=== PATIENT | female | born 1975 | race African-American/Black ===

== ENCOUNTER 2020-07-29 09:42 | Outpatient (REF) | payer MEDICARE, MEDICAID, SELFPAY | END 2020-07-29 09:43 | disposition home or self-care (01) | LOC: HO.LAB 09:42 | PROVIDERS: Visit Provider Internal Medicine | DX: Z20.828 Contact with and (suspected) exposure to other viral communicable diseases (principal) | CPT/HCPCS: 87635 ==

== ENCOUNTER → 2020-08-30 12:35 | Outpatient (BNVA) | payer MEDICARE, MEDICAID, SELFPAY | PROVIDERS: PCP Internal Medicine; Referring Provider Internal Medicine; Visit Provider Advanced Practice Midwife | DX: Z76.89 Persons encountering health services in other specified circumstances (principal) ==

== ENCOUNTER → 2020-08-31 13:33 | Outpatient (BNVA) | payer MEDICARE, MEDICAID, SELFPAY | PROVIDERS: Visit Provider Advanced Practice Midwife | DX: Z30.42 Encounter for surveillance of injectable contraceptive (principal) | CPT/HCPCS: 99211; J1050 ==

== ENCOUNTER → 2020-10-04 09:51 | Outpatient (BNV) | payer MEDICARE, MEDICAID, SELFPAY | PROVIDERS: PCP Internal Medicine; Visit Provider Internal Medicine | DX: E53.8 Deficiency of other specified B group vitamins (principal) | CPT/HCPCS: 99212; 99213; G2211 ==

== ENCOUNTER 2020-11-01 08:07 | Outpatient (REF) | payer MEDICARE, MEDICAID, SELFPAY ==
[2020-11-01 09:20] LABS: MANUAL DIFF FLAG NO
[2020-11-01 09:24] LABS: Basophils Percent Auto 0.8 % (0-2); Eosinophils Absolute Auto 0.1 X10*3/uL (0.0-0.4); Hematocrit 40.6 % (37-47); Imm Gran Abs Auto 0.01 X10*3/uL (0.00-0.03); Imm Gran Pct Auto 0.3 % (0.0-0.4); Lymphocytes Absolute Auto 1.5 X10*3/uL (1.2-4.9); Lymphocytes Percent Auto 42.3 % (20-40); Mean Corpuscular Volume 87.3 fL (80-98); Mean Platelet Volume 10.6 fL (9.4-12.3); Monocytes Absolute Auto 0.3 X10*3/uL (0.1-1.2); Neutrophils Absolute Auto 1.7 X10*3/uL (2.0-8.3); Neutrophils Percent Auto 47.6 % (45-73); Platelet Count 180 X10*3/uL (160-400); Red Blood Count 4.65 X10*6/uL (4.20-5.50); Red Cell Distribution Width 12.9 % (11.0-16.0); White Blood Count 3.6 X10*3/uL (4.8-10.8)
[2020-11-01 10:08] LABS: Alanine Aminotransferase 11 U/L (0-31); Albumin Level 4.9 g/dL (3.5-5.0); Alkaline Phosphatase 70 U/L (39-117); Anion Gap 13 (12-20); Aspartate Amino Transferase 20 U/L (5-31); Bilirubin Total 1.1 mg/dL (0.0-1.0); Blood Urea Nitrogen 16 mg/dL (9-16); Calcium 9.5 mg/dL (8.4-10.2); Carbon Dioxide 23 mmol/L (22-29); Chloride 108 mmol/L (96-108); Cholesterol 158 mg/dL; Estimated Glomerular Filt Rate > 60; Glucose Fasting 91 mg/dL (60-99); HDL Cholesterol 46 mg/dL; LDL Cholesterol Calculated 100 mg/dl; Potassium 3.8 mmol/l (3.3-5.1); Sodium 140 mmol/L (135-145); Total Protein 7.7 g/dL (6.5-8.0); Triglycerides 60 mg/dL
[2020-11-01 10:32] LABS: Folate 11.2 ng/mL (> or = 4.0); Vitamin B12 323 pg/mL (200-900)
[2020-11-05 13:02] LABS: Vitamin D 25-OH, D2 21 ng/mL; Vitamin D 25-OH, D3 7 ng/mL; Vitamin D 25-OH, Total 28 ng/mL (30-100)
== END 2020-11-01 08:08 | disposition home or self-care (01) ==
LOC: HO.LAB 08:07
PROVIDERS: Internal Medicine; Visit Provider Internal Medicine
DX: E78.00 Pure hypercholesterolemia, unspecified (principal); E53.8 Deficiency of other specified B group vitamins; E11.9 Type 2 diabetes mellitus without complications; E55.9 Vitamin D deficiency, unspecified; J30.9 Allergic rhinitis, unspecified; Z20.822 Contact with and (suspected) exposure to COVID-19
CPT/HCPCS: 36415; 80053; 80061; 82306; 82607; 82746; 85025; 86003; U0003

== ENCOUNTER → 2020-11-29 12:38 | Outpatient (BNVA) | payer MEDICARE, MEDICAID, SELFPAY | PROVIDERS: Visit Provider Advanced Practice Midwife | DX: Z30.42 Encounter for surveillance of injectable contraceptive (principal) | CPT/HCPCS: 96372; 99211 ==

== ENCOUNTER → 2021-01-23 12:00 | Outpatient (REF) | payer MEDICARE, MEDICAID, SELFPAY ==
--- NOTE | 2021-01-23 12:06 | ECG_ITS ---
Test Reason : TACHYCARDIA Blood Pressure : / mmHG Vent. Rate : 065 BPM Atrial Rate : 065 BPM P-R Int : 182 ms QRS Dur : 062 ms QT Int : 356 ms P-R-T Axes : 074 061 045 degrees QTc Int : 370 ms Normal sinus rhythm with sinus arrhythmia Normal ECG When compared with ECG of 28-JUN-2002 02:27, No significant change was found Referred By: Maranda Moran Electronically Signed By:LEIGHA MONTOYA
== END ==
LOC: HO.CARD 12:00
PROVIDERS: PCP Internal Medicine; Visit Provider Internal Medicine
DX: R00.0 Tachycardia, unspecified (principal)
CPT/HCPCS: 93005

== ENCOUNTER → 2021-02-14 12:40 | Outpatient (BNVA) | payer MEDICARE, MEDICAID, SELFPAY | PROVIDERS: PCP Internal Medicine; Visit Provider Advanced Practice Midwife | DX: Z30.42 Encounter for surveillance of injectable contraceptive (principal) | CPT/HCPCS: 96372; 99211; J1050 ==

== ENCOUNTER 2021-02-16 12:10 | Outpatient (REF) | payer MEDICARE, MEDICAID, SELFPAY ==
--- NOTE | ~2021-02-16 | XR_ITS ---
EXAMINATION: XR FOOT, LEFT CLINICAL INFORMATION: Pain left foot COMPARISON: None TECHNIQUE: AP, lateral, and oblique views of the left foot. FINDINGS: There is mild hallux valgus deformity first MTP joint. No visible acute fracture, dislocation or subluxation seen. The ankle mortise and subtalar joints are normal. The soft tissues are normal. XR/XR foot LT 2V IMPRESSION: Mild hallux valgus deformity first MTP joint. Otherwise no acute process seen.
== END 2021-02-16 12:11 | disposition home or self-care (01) ==
LOC: HO.XRAY 12:10
PROVIDERS: Visit Provider Physician Assistant
DX: M79.672 Pain in left foot (principal)
CPT/HCPCS: 73620

== ENCOUNTER 2021-02-27 08:45 | Outpatient (REF) | payer MEDICARE, MEDICAID, SELFPAY ==
[2021-02-27 09:41] LABS: MANUAL DIFF FLAG NO
[2021-02-27 09:47] LABS: Basophils Percent Auto 0.5 % (0-2); Eosinophils Absolute Auto 0.1 X10*3/uL (0.0-0.4); Eosinophils Percent Auto 1.5 % (0-4); Hematocrit 39.4 % (37-47); Hemoglobin 12.6 g/dl (12.0-16.0); Imm Gran Abs Auto 0.01 X10*3/uL (0.00-0.03); Imm Gran Pct Auto 0.2 % (0.0-0.4); Lymphocytes Absolute Auto 1.6 X10*3/uL (1.2-4.9); Lymphocytes Percent Auto 39.3 % (20-40); Mean Corpuscular Hemoglobin 27.9 pg (27.0-33.0); Mean Corpuscular Volume 87.4 fL (80-98); Mean Platelet Volume 10.6 fL (9.4-12.3); Monocytes Absolute Auto 0.3 X10*3/uL (0.1-1.2); Monocytes Percent Auto 7.6 % (2-11); Neutrophils Absolute Auto 2.1 X10*3/uL (2.0-8.3); Neutrophils Percent Auto 50.9 % (45-73); Platelet Count 185 X10*3/uL (160-400); Red Blood Count 4.51 X10*6/uL (4.20-5.50); Red Cell Distribution Width 12.8 % (11.0-16.0); White Blood Count 4.1 X10*3/uL (4.8-10.8)
[2021-02-27 10:40] LABS: Erythrocyte Sedimentation Rate 8 MM/HR (0-20)
== END 2021-02-27 08:46 | disposition home or self-care (01) ==
LOC: HO.LAB 08:45
PROVIDERS: PCP Internal Medicine; Visit Provider Internal Medicine
DX: M79.672 Pain in left foot (principal)
CPT/HCPCS: 36415; 84550; 85025; 85652

== ENCOUNTER → 2021-03-01 13:42 | Outpatient (BNVA) | payer MEDICARE, MEDICAID, SELFPAY | PROVIDERS: PCP Internal Medicine; Visit Provider Internal Medicine | DX: I49.1 Atrial premature depolarization (principal); I49.3 Ventricular premature depolarization | CPT/HCPCS: 99202 ==

== ENCOUNTER → 2021-03-09 09:35 | Outpatient (REF) | payer MEDICARE, MEDICAID, SELFPAY ==
--- NOTE | 2021-03-09 09:05 | ECG_ITS ---
Hook-up date: 2021-03-09 09:59:00 Duration: 25:05:00 Test Indications: i49.1 Medications: [id number] QRS complexes 260 Ventricular ectopics which represent <1 % of total QRS comp. 319 Supraventricular ectopics which represent <1 % of total QRS comp. * Paced QRS complexs which represent % of total QRS comp. VENTRICULAR ECTOPY 260 Isolated 0 Bigeminal Cycles 0 Couplets 0 Runs 0 Beats in Runs * Beats LONGEST at * BPM at :: -- * Beats FASTEST at * BPM at :: -- SUPRAVENTRICULAR ECTOPY 315 Isolated 2 Couplets 0 Runs 0 Beats in Runs * Beats LONGEST at * BPM at :: -- * Beats FASTEST at * BPM at :: -- HEART RATES 54 MIN at 01:28:15 2021-03-10 85 AVG 144 MAX at 15:16:25 2021-03-09 LONGEST RR 1.2080 secs at 08:32:15 2021-03-10 S-T LEVELS Channel 1 - 128 mm at 09:59:00 2021-03-09 - 128 mm at 09:59:00 2021-03-09 Channel 2 - 128 mm at 09:59:00 2021-03-09 - 128 mm at 09:59:00 2021-03-09 Channel 3 - 128 mm at 02:91:81 -- - 128 mm at 02:91:81 Underlying rhythm is sinus; Average Vent. rate 85/min; range 54-144/min; Rare PACs and PVCs, isolated; No sustained arrhythmias; Patient did not report any symptoms in the diary Referred By: Leigha Montoya Overread By: LEIGHA MONTOYA
== END ==
LOC: HO.CARD 09:35
PROVIDERS: PCP Internal Medicine; Referring Provider Internal Medicine; Visit Provider Internal Medicine
DX: I49.1 Atrial premature depolarization (principal)
CPT/HCPCS: 93226

== ENCOUNTER 2021-03-28 11:58 | Outpatient (REF) | payer MEDICARE, MEDICAID, SELFPAY ==
--- NOTE | ~2021-03-28 | MM_ITS ---
EXAMINATION: MM SCREENING DIGITAL BREAST TOMOSYNTHESIS, BILATERAL CLINICAL INFORMATION: Screening. Asymptomatic. The lifetime risk of breast cancer based on the Tyrer-Cuzick Model is 9%. COMPARISON: Mammography: 05/05/2019, 04/22/2018, 04/11/2017 TECHNIQUE: Digital breast tomosynthesis is performed in both the craniocaudal and mediolateral oblique views along with computer-aided detection (CAD). Synthesized 2D images are generated from the tomosynthesis. Additional right CC view is provided. FINDINGS: The breasts are heterogeneously dense, which may obscure small masses (ACR BI-RADS breast composition Category c). Breast tissue composition borders on extremely dense. The left MLO tomography has 0.9 cm oval smooth asymmetric density just lateral to the posterior nipple line 6 -7 cm from nipple. There is no correlate on CC view. Chronicity is difficult to discern as prior studies are without tomography. Patient will be recalled to fully characterize. The remainder the breasts show no interval mass or architectural abnormality. There are no abnormal calcifications. The axilla and skin contours are unremarkable. MM/MM tomosynthesis screening BI IMPRESSION: 1. Left: Smooth oval 0.9 cm asymmetric density on left MLO tomography just lateral to posterior nipple line 6 to 7 cm from nipple. 2. Right: No mammographic evidence of malignancy. ASSESSMENT: BI-RADS 0: Incomplete - Need Additional Imaging Evaluation RECOMMENDATION: 1. Additional views of the left breast (3-D exaggerated CC). 2. Targeted ultrasound left breast. 3. Radiology department staff will contact the patient for additional imaging. This patient's information was entered into a reminder system with a target due date for their next mammogram.
== END 2021-03-28 11:59 | disposition home or self-care (01) ==
LOC: HO.MAMMO 11:58
PROVIDERS: Visit Provider Internal Medicine
DX: Z12.31 Encounter for screening mammogram for malignant neoplasm of breast (principal)
CPT/HCPCS: 77063; 77067

== ENCOUNTER 2021-04-05 07:54 | Outpatient (REF) | payer MEDICARE, MEDICAID, SELFPAY ==
--- NOTE | ~2021-04-05 | MM_ITS ---
EXAMINATION: MM DIAGNOSTIC DIGITAL BREAST TOMOSYNTHESIS, LEFT US DIAGNOSTIC ULTRASOUND BREAST, LEFT CLINICAL INFORMATION: Recall from screening for smooth 0.9 cm round asymmetric density posterior outer breast on MLO tomography. COMPARISON: Mammography: 03/28/2021, 05/05/2019, 04/22/2018 TECHNIQUE: Digital breast tomosynthesis is performed. 2D images are generated from the tomosynthesis. The following views are obtained: Exaggerated CC x2. Ultrasound left breast is targeted to the outer quadrant. Grayscale imaging and color Doppler are performed without and with harmonics. FINDINGS: The breasts are heterogeneously dense, which may obscure small masses (ACR BI-RADS breast composition Category c). The additional exaggerated left CC views show no correlate for the recent finding on MLO tomography. Ultrasound outer left breast demonstrates a 0.8 cm cyst 3:00 position 7 cm from nipple corresponding to finding on recent screening mammography. This is anechoic and shows increased through-transmission of sound, smooth margins, and no color flow. There is a satellite cyst near this area measuring 0.6 x 0.4 cm. Results are discussed with the patient at time of visit. MM/MM tomosynthesis added views L IMPRESSION: Simple cyst 3:00 position measuring 0.8 cm corresponding to finding on recent screening mammography. Smaller adjacent cyst. ASSESSMENT: BI-RADS 2: Benign RECOMMENDATION: Routine annual mammography screening. This patient's information was entered into a reminder system with a target due date for their next mammogram.
== END 2021-04-05 07:55 | disposition home or self-care (01) ==
LOC: HO.MAMMO 07:54
PROVIDERS: Visit Provider Internal Medicine
DX: R92.2 Inconclusive mammogram (principal)
CPT/HCPCS: 76642; 77061; 77065

== ENCOUNTER → 2021-04-18 08:33 | Outpatient (REF) | payer MEDICARE, MEDICAID, SELFPAY ==
--- NOTE | 2021-04-18 08:37 | CA_ITS ---
Transthoracic Echocardiogram Patient (Last, First, Middle): Jud Silva, Gender: Female Date of : 1975 Age: 46 Procedure Date: 04/18/2021 Procedure Type: Transthoracic Echocardiogram Location: OP Height: 170. cm Weight: 61. kg BSA: 1.71 m2 Heart Rate: bpm BP: 105 / 71 mmHg Employment Assistant: MEKHI Referring MD: Jorge L Leggett MD Symptoms: I49.1 - Atrial premature depolarization Study Quality: Good ECG Rhythm: Sinus Conclusions: - The left ventricular systolic function is normal. The visually estimated ejection fraction is between 60-65%. - No obvious valvular pathology seen on this study. Findings Left Ventricle Normal left ventricular cavity size. There is normal left ventricular wall thickness. The left ventricular systolic function is normal. The visually estimated ejection fraction is between 60-65%. There is no evidence of regional wall motion abnormalities. Diastolic function is normal for age. Right Ventricle Normal right ventricular cavity size and systolic function. Atria Both atria are normal in size. Aortic Valve There is a normal trileaflet aortic valve. There is no aortic valve stenosis. There is no aortic valve regurgitation. Mitral Valve The mitral valve appears normal. There is trace mitral valve regurgitation. There is no mitral valve stenosis. Pulmonic Valve The pulmonic valve was not well visualized. Tricuspid Valve Normal tricuspid valve structure. There is trace tricuspid valve regurgitation. The pulmonary artery systolic pressure is normal. Great Vessels The aortic annulus, sinuses of valsalva, and asc aorta are normal in size. Venous The inferior vena cava is normal in size and collapses greater than 50% with inspiration. Pericardium/Pleural There is no evidence of pericardial effusion. Prior Study Comparison No significant change compared to prior study dated: 11/28/2005. Recommendations, Care & Conclusions No obvious valvular pathology seen on this study. Measurements 2D Linear Measurements IVSd: 0.92 0.6-0.9/0.6-1.0 cm LVIDd: 3.94 3.9-5.3/4.2-5.9 cm LVIDd Index: 2.30 2.4-3.2/2.2-3.1 cm/m2 LVIDs: 2.50 2.0-3.6 cm LVPWd: 0.73 0.7-1.1 cm Ao Root: 2.40 2.1-3.5 cm LA Diam: 2.50 2.7-3.8/3.0-4.0 cm LAIDs Index: 1.46 1.5-2.3 cm/m2 LV Mass: 117.28 67-162/88-224 g LV Mass Index: 68.58 43-95/49-115 g/m2 LVOT Diam: 1.90 3.0+(-)1.3 cm 2D Systolic Function EF 4C: 61.70 >55% EF 2C: 65.10 >55% EF BiP: 63.80 >55% Mitral Valve MV Pk E: 0.60 MV PK A: 0.46 MV Decel Time: 165.00 E/A: 1.30 E'Lateral: 13.30 E'Medial: 9.25 E/E' Med: 6.50 E/E' Lat: 4.50 PHT: 48.00 MVA PHT: 4.58 Decel Gila: 3.62 Aortic Valve AoV Pk Cory: 1.07 AoV Pk Grad: 5.00 LVOT LVOT Pk Cory: 0.95 LVOT Mn Cory: 0.59 LVOT VTI: 0.16 LVOT Pk Grad: 4.00 LVOT Mn Grad: 2.00 LVOT Diam: 1.90 LVOT Area: 2.84 Diastolic Function MV Pk E: 0.60 MV Pk A: 0.46 E/A: 1.30 E'Medial: 9.25 E/E' Med: 6.50 E' Laterial: 13.30 E/E' Lat: 4.50 Tricuspid Valve TR Pk Cory: 1.79 TR Pk Grad: 13.00 RA Press: 3.00 RVSP: 16.00 Great Vessels Aorta Ao Root-2D: 2.40 2.0-3.7 cm Ao Asc: 2.60 2.1-3.4 cm Updated in Other Vendor System with Status of Final Jorge L Leggett MD electronically signed on 04/18/2021 11:26:35 AM with status of Final
== END ==
LOC: HO.CARD 08:33
PROVIDERS: Visit Provider Internal Medicine
DX: I49.1 Atrial premature depolarization (principal); I49.3 Ventricular premature depolarization
CPT/HCPCS: 93306

== ENCOUNTER → 2021-05-02 10:35 | Outpatient (BNVA) | payer MEDICARE, MEDICAID, SELFPAY | PROVIDERS: PCP Internal Medicine; Visit Provider Advanced Practice Midwife | DX: Z30.42 Encounter for surveillance of injectable contraceptive (principal) | CPT/HCPCS: 96372; 99211 ==

== ENCOUNTER → 2021-05-08 12:32 | Outpatient (BNVA) | payer MEDICARE, MEDICAID, SELFPAY | PROVIDERS: PCP Internal Medicine; Visit Provider Internal Medicine | DX: I49.1 Atrial premature depolarization (principal); I49.3 Ventricular premature depolarization; I95.0 Idiopathic hypotension; Z79.899 Other long term (current) drug therapy | CPT/HCPCS: 99212 ==

== ENCOUNTER 2021-06-03 07:21 | Outpatient (REF) | payer MEDICARE, MEDICAID, SELFPAY ==
[2021-06-03 08:11] LABS: MANUAL DIFF FLAG NO
[2021-06-03 08:20] LABS: Basophils Percent Auto 0.5 % (0-2); Eosinophils Absolute Auto 0.1 X10*3/uL (0.0-0.4); Eosinophils Percent Auto 2.4 % (0-4); Hematocrit 38.5 % (37-47); Hemoglobin 12.6 g/dl (12.0-16.0); Imm Gran Abs Auto 0.01 X10*3/uL (0.00-0.03); Imm Gran Pct Auto 0.3 % (0.0-0.4); Lymphocytes Absolute Auto 1.3 X10*3/uL (1.2-4.9); Lymphocytes Percent Auto 34.7 % (20-40); Mean Corpuscular HGB Conc 32.7 g/dl (31.0-35.0); Mean Corpuscular Hemoglobin 28.4 pg (27.0-33.0); Mean Corpuscular Volume 86.7 fL (80-98); Mean Platelet Volume 10.7 fL (9.4-12.3); Monocytes Absolute Auto 0.3 X10*3/uL (0.1-1.2); Monocytes Percent Auto 8.2 % (2-11); Neutrophils Absolute Auto 2.1 X10*3/uL (2.0-8.3); Neutrophils Percent Auto 53.9 % (45-73); Platelet Count 199 X10*3/uL (160-400); Red Blood Count 4.44 X10*6/uL (4.20-5.50); Red Cell Distribution Width 13.1 % (11.0-16.0); White Blood Count 3.8 X10*3/uL (4.8-10.8)
[2021-06-03 08:48] LABS: Alanine Aminotransferase 12 U/L (0-31); Albumin Level 4.8 g/dL (3.5-5.0); Alkaline Phosphatase 76 U/L (39-117); Anion Gap 14 (12-20); Aspartate Amino Transferase 18 U/L (5-31); Bilirubin Total 1.2 mg/dL (0.0-1.0); Blood Urea Nitrogen 12 mg/dL (9-16); Calcium 9.9 mg/dL (8.4-10.2); Carbon Dioxide 19 mmol/L (22-29); Chloride 112 mmol/L (96-108); Cholesterol 149 mg/dL; Estimated Glomerular Filt Rate > 60; Glucose Fasting 91 mg/dL (60-99); HDL Cholesterol 47 mg/dL; LDL Cholesterol Calculated 92 mg/dl; Potassium 3.7 mmol/L (3.3-5.1); Sodium 141 mmol/L (135-145); Total Protein 7.6 g/dL (6.5-8.0); Triglycerides 51 mg/dL
[2021-06-05 04:14] LABS: Folate 12.3 ng/mL (> or = 4.0); Vitamin B12 299 pg/mL (200-900)
[2021-06-09 07:27] LABS: Vitamin D 25-OH, D2 13 ng/mL; Vitamin D 25-OH, D3 12 ng/mL; Vitamin D 25-OH, Total 25 ng/mL (30-100)
== END 2021-06-03 07:22 | disposition home or self-care (01) ==
LOC: HO.LAB 07:21
PROVIDERS: PCP Internal Medicine; Visit Provider Internal Medicine
DX: D64.9 Anemia, unspecified (principal); E78.00 Pure hypercholesterolemia, unspecified; E78.5 Hyperlipidemia, unspecified; E53.8 Deficiency of other specified B group vitamins; E55.9 Vitamin D deficiency, unspecified
CPT/HCPCS: 36415; 80053; 80061; 82306; 82607; 82746; 85025

== ENCOUNTER → 2021-08-03 10:41 | Outpatient (BNVA) | payer MEDICARE, MEDICAID, SELFPAY | PROVIDERS: PCP Internal Medicine; Visit Provider Advanced Practice Midwife | DX: Z30.42 Encounter for surveillance of injectable contraceptive (principal) | CPT/HCPCS: 96372; 99211 ==

== ENCOUNTER 2021-08-18 08:57 | Outpatient (REF) | payer MEDICARE, MEDICAID, SELFPAY ==
--- NOTE | ~2021-08-18 | XR_ITS ---
EXAMINATION: XR KNEE, LEFT CLINICAL INFORMATION: Left knee pain COMPARISON: None TECHNIQUE: Four views of the left knee. This includes AP and lateral upright views. FINDINGS: No fracture or subluxation. Compartmental joint spaces are maintained. No joint effusion. Tiny marginal osteophytes of the patellofemoral compartment. No joint effusion. The soft tissues are unremarkable. XR/XR knee LT 2V IMPRESSION: Minimal degenerative change of the patellofemoral compartment.
== END 2021-08-18 08:58 | disposition home or self-care (01) ==
LOC: HO.XRAY 08:57
PROVIDERS: PCP Internal Medicine; Visit Provider Internal Medicine
DX: M25.562 Pain in left knee (principal)
CPT/HCPCS: 73560

== ENCOUNTER 2021-08-25 12:35 | Outpatient (REF) | payer MEDICARE, MEDICAID, SELFPAY ==
[2021-08-30 02:17] LABS: HPV mRNA E6/E7 rflx Not Detected (Not Detected)
== END 2021-08-25 12:36 | disposition home or self-care (01) ==
LOC: HO.LAB 12:35
PROVIDERS: PCP Internal Medicine; Visit Provider Advanced Practice Midwife
DX: Z01.419 Encounter for gynecological examination (general) (routine) without abnormal findings (principal); Z30.42 Encounter for surveillance of injectable contraceptive
CPT/HCPCS: 87624; 88142

== ENCOUNTER 2021-09-01 08:00 | Outpatient (RCR) | payer MEDICARE, MEDICAID, SELFPAY | END 2021-09-01 11:23 | disposition home or self-care (01) | LOC: HO.PT 08:00 | PROVIDERS: Visit Provider Nurse Practitioner Family | DX: M79.605 Pain in left leg (principal) | CPT/HCPCS: 97110; 97150; 97161 ==

== ENCOUNTER → 2021-09-11 10:47 | Outpatient (BNVA) | payer MEDICARE, MEDICAID, SELFPAY | PROVIDERS: PCP Internal Medicine; Visit Provider Physician Assistant | DX: M54.16 Radiculopathy, lumbar region (principal) | CPT/HCPCS: 99202 ==

== ENCOUNTER → 2021-10-19 08:39 | Outpatient (BNVA) | payer MEDICARE, MEDICAID, SELFPAY | PROVIDERS: PCP Nurse Practitioner Family; Visit Provider Advanced Practice Midwife | DX: Z30.42 Encounter for surveillance of injectable contraceptive (principal) | CPT/HCPCS: 96372; 99211 ==

== ENCOUNTER → 2021-11-07 12:07 | Outpatient (BNVA) | payer MEDICARE, MEDICAID, SELFPAY | PROVIDERS: PCP Nurse Practitioner Family; Referring Provider Nurse Practitioner Family; Visit Provider Internal Medicine | DX: I49.1 Atrial premature depolarization (principal); I49.3 Ventricular premature depolarization; I95.0 Idiopathic hypotension | CPT/HCPCS: 99212 ==

== ENCOUNTER → 2021-11-22 12:35 | Outpatient (BNVA) | payer MEDICARE, MEDICAID, SELFPAY | PROVIDERS: Visit Provider Nurse Practitioner Family | DX: M54.50 Low back pain, unspecified (principal); M79.18 Myalgia, other site; Z86.59 Personal history of other mental and behavioral disorders | CPT/HCPCS: 99202 ==

== ENCOUNTER 2021-12-05 09:40 | Outpatient (REF) | payer MEDICARE, MEDICAID, SELFPAY ==
--- NOTE | ~2021-12-05 | XR_ITS ---
EXAMINATION: XR LUMBOSACRAL SPINE CLINICAL INFORMATION: Low back pain. COMPARISON: None TECHNIQUE: Three views of the lumbosacral spine. FINDINGS: There is normal lumbar segmentation with 5 nonrib-bearing lumbar vertebrae with normal lumbar lordosis. There is borderline superior endplate depression at L5, likely old as there is bridging anterior osteophyte at this level. Remainder of the vertebral bodies are normal in height. There is no spondylolisthesis or destructive process. No focal disc narrowing or erosive changes. The SI joints and visualized sacrum are unremarkable. XR/XR lumbar spine 2-3V IMPRESSION: 1. Borderline superior endplate depression at L5, likely old given the associated partially bridging anterior osteophyte at this level. 2. No spondylolisthesis or destructive process. No focal disc narrowing.
== END 2021-12-05 09:41 | disposition home or self-care (01) ==
LOC: HO.XRAY 09:40
PROVIDERS: PCP Internal Medicine; Visit Provider Nurse Practitioner Family
DX: M54.50 Low back pain, unspecified (principal)
CPT/HCPCS: 72100

== ENCOUNTER 2022-01-19 11:00 | Outpatient (RCR) | payer MEDICARE, MEDICAID, SELFPAY ==
--- NOTE | 2021-11-03 14:16 | MHC.PT.EP ---
[facility] [place] Office [place] Office [place] Office [address] [phone] F: [phone] F: [phone] F: [phone] F: [phone] Physical Therapy Plan of Care Date of Evaluation: Date of Surgery: NA Diagnosis: LOW BACK PAIN, RIGHT Assessment: SWATI IS A PLEASANT 46 YO FEMALE WHO PRESENTS TO US WITH INTERMITTENT LOW BACK PAIN WHICH APPEARS TO BE RELATED TO MUSCULAR LENGTH AND STRENGTH IMBALANCES WHICH FOSTER A PATTERNED STYLE OF MOVEMENT LEADING TO INCREASED PAIN AND DYSFUNCTION. FUNCTIONAL LIMITATIONS INCLUDE DECREASED ABILTIY TO PERFORM LIFTING, CARRYING, STATIC SITTING AND DISRUPTED SLEEP. Frequency and Duration: The patient will be seen 1 X WEEK FOR 3 WEEKS Short Term Goals: INITIATE HEP Senior Living Goals: IN 4 WEEKS FULL, PAIN FREE LUMBAR ROM TO PERFORM FULL FUNCTIONAL SQUAT WITH CORRECT MECHANICS AND NO VERBAL CUING TO PERFORM 3:3 LIFTING TASKS UP TO 50# WITHOUT CUING AND PAIN NO GREATER THAN 2/10 INDEPENDENT HEP AND SELF MANAGEMENT OF ANY RESIDUAL SYMPTOMS Treatment Plan: Modalities to reduce pain, spasms and effusion. Manual therapy to restore motion and function. Therapeutic exercise to improve strength and flexibility. Neuromuscular re-education for posture and balance. Therapeutic activities to return to functional activities of daily living. Electronically signed by: LYNN STEWART PT, DPT Please sign and return to therapist. Thank you for your referral.
== END 2022-02-26 13:49 | disposition home or self-care (01) ==
LOC: HO.PT 11:00
PROVIDERS: PCP Internal Medicine; Visit Provider Nurse Practitioner Family
DX: M54.50 Low back pain, unspecified (principal)
CPT/HCPCS: 97110; 97162

== ENCOUNTER → 2022-01-23 15:10 | Outpatient (BNVA) | payer MEDICARE, MEDICAID, SELFPAY | PROVIDERS: PCP Internal Medicine; Visit Provider Nurse Practitioner Family | DX: M54.50 Low back pain, unspecified (principal); M79.18 Myalgia, other site; F79 Unspecified intellectual disabilities | CPT/HCPCS: 99212 ==

== ENCOUNTER → 2022-01-24 12:29 | Outpatient (BNVA) | payer MEDICARE, MEDICAID, SELFPAY | PROVIDERS: PCP Internal Medicine; Visit Provider Advanced Practice Midwife | DX: Z30.09 Encounter for other general counseling and advice on contraception (principal); Z12.39 Encounter for other screening for malignant neoplasm of breast; N95.1 Menopausal and female climacteric states | CPT/HCPCS: 81025; 99212 ==

== ENCOUNTER 2022-02-08 12:30 | Outpatient (REF) | payer MEDICARE, MEDICAID, SELFPAY ==
[2022-02-10 14:42] LABS: Follicle Stimulating Hormone 78.7 mIU/mL
== END 2022-02-08 12:31 | disposition home or self-care (01) ==
LOC: HO.LAB 12:30
PROVIDERS: PCP Internal Medicine; Visit Provider Advanced Practice Midwife
DX: N95.1 Menopausal and female climacteric states (principal)
CPT/HCPCS: 36415; 83001

== ENCOUNTER 2022-02-20 10:18 | Outpatient (REF) | payer MEDICARE, MEDICAID, SELFPAY ==
--- NOTE | ~2022-02-20 | MM_ITS ---
EXAMINATION: MM SCREENING DIGITAL BREAST TOMOSYNTHESIS, BILATERAL CLINICAL INFORMATION: Screening. Asymptomatic. The lifetime risk of breast cancer based on the Tyrer-Cuzick Model is 9%. COMPARISON: Mammography: 04/05/2021, 03/28/2021, 05/05/2019, 04/22/2018; ultrasound left breast 04/05/2021 TECHNIQUE: Digital breast tomosynthesis is performed in both the craniocaudal and mediolateral oblique views along with computer-aided detection (CAD). Synthesized 2D images are generated from the tomosynthesis. Additional right CC view is provided. FINDINGS: The breasts are heterogeneously dense, which may obscure small masses (ACR BI-RADS breast composition Category c). There are no significant masses, abnormal calcifications, or other abnormalities. There is a circumscribed mass posterior 3:00 left breast corresponding to the cyst on prior imaging. The axilla and skin contours are unremarkable. No significant changes from prior study. MM/MM tomosynthesis screening BI IMPRESSION: No mammographic evidence of malignancy. ASSESSMENT: BI-RADS 2: Benign RECOMMENDATION: Routine annual mammography screening. This patient's information was entered into a reminder system with a target due date for their next mammogram.
[2022-02-20 10:36] LABS: MANUAL DIFF FLAG NO
[2022-02-20 10:39] LABS: Basophils Percent Auto 0.5 % (0-2); Eosinophils Absolute Auto 0.1 X10*3/uL (0.0-0.4); Eosinophils Percent Auto 3.1 % (0-4); Hematocrit 37.3 % (37.0-47.0); Hemoglobin 12.1 g/dl (12.0-16.0); Lymphocytes Absolute Auto 1.7 X10*3/uL (1.2-4.9); Lymphocytes Percent Auto 40.1 % (20-40); Mean Corpuscular HGB Conc 32.4 g/dl (31.0-35.0); Mean Corpuscular Hemoglobin 28.4 pg (27.0-33.0); Mean Corpuscular Volume 87.6 fL (80.0-98.0); Mean Platelet Volume 9.3 fL (9.4-12.3); Monocytes Absolute Auto 0.3 X10*3/uL (0.1-1.2); Neutrophils Absolute Auto 2.1 x10*3/uL (2.0-8.3); Neutrophils Percent Auto 48.3 % (45-73); Platelet Count 201 X10*3/uL (160-400); Red Blood Count 4.26 X10*6/uL (4.20-5.50); Red Cell Distribution Width 12.4 % (11.0-16.0); White Blood Count 4.2 X10*3/uL (4.8-10.8)
[2022-02-20 11:19] LABS: Alanine Aminotransferase 15 U/L (0-31); Albumin Level 4.5 g/dL (3.5-5.0); Alkaline Phosphatase 80 U/L (39-117); Anion Gap 13 (12-20); Aspartate Amino Transferase 19 U/L (5-31); Bilirubin Total 1.2 mg/dL (0.0-1.0); Blood Urea Nitrogen 13 mg/dL (9-16); Calcium 9.8 mg/dL (8.4-10.2); Carbon Dioxide 22 mmol/L (22-29); Chloride 110 mmol/L (96-108); Cholesterol 155 mg/dL; Estimated Glomerular Filt Rate > 60; Glucose Fasting 91 mg/dL (60-99); HDL Cholesterol 44 mg/dL; LDL Cholesterol Calculated 95 mg/dl; Sodium 141 mmol/L (135-145); Triglycerides 81 mg/dL
[2022-02-20 11:41] LABS: Vitamin D 25-OH Total 12.4 ng/mL (>30)
[2022-02-20 11:59] LABS: Folate 15.8 ng/mL (> or = 4.0); Vitamin B12 296 pg/mL (200-900)
== END 2022-02-20 10:19 | disposition home or self-care (01) ==
LOC: HO.MAMMO 10:18
PROVIDERS: PCP Internal Medicine; Visit Provider Internal Medicine
DX: Z12.31 Encounter for screening mammogram for malignant neoplasm of breast (principal); Z00.00 Encounter for general adult medical examination without abnormal findings; E53.8 Deficiency of other specified B group vitamins; D64.9 Anemia, unspecified; E55.9 Vitamin D deficiency, unspecified; E78.5 Hyperlipidemia, unspecified
CPT/HCPCS: 36415; 77063; 77067; 80053; 80061; 82306; 82607; 82746; 85025

== ENCOUNTER → 2022-02-23 10:12 | Outpatient (BNVA) | payer MEDICARE, MEDICAID, SELFPAY | PROVIDERS: PCP Internal Medicine; Visit Provider Advanced Practice Midwife | DX: Z71.2 Person consulting for explanation of examination or test findings (principal); N95.1 Menopausal and female climacteric states | CPT/HCPCS: 99212 ==

== ENCOUNTER → 2022-04-03 15:03 | Outpatient (BNVA) | payer MEDICARE, MEDICAID, SELFPAY | PROVIDERS: PCP Internal Medicine; Visit Provider Nurse Practitioner Family | DX: M79.18 Myalgia, other site (principal); M54.50 Low back pain, unspecified | CPT/HCPCS: 99212 ==

== ENCOUNTER 2022-07-08 13:22 | Emergency (ER) | payer MEDICARE, MEDICAID, SELFPAY ==
[2022-07-08 16:02] VITALS: BP 112/94; PULSE 86; RESP 18; TEMP 37.3; O2SAT 96; BMI 19.3
--- NOTE | 2022-07-08 16:36 | ED_ITS ---
HPI - General Adult General Chief complaint: Upper Respiratory Symptoms Stated complaint: Cough/Fever/Dizziness Time Seen by Provider: 07/08/22 16:04 Source: patient Mode of arrival: ambulatory Limitations: no limitations History of Present Illness HPI narrative: Patient is a 47 year old female presenting to the emergency department today with a persistent cough. Patient states that she took a COVID-19 test about a week ago but her cough is hanging on. Patient denies any dizziness, lightheadedness, abdominal pain, nausea, vomiting, fever, chills, blurry vision, double vision, loss of vision, chest pain, difficulty breathing, shortness of breath, back pain, night sweats, pain with urination, increased urinary frequency, increased urinary urgency, blood in her urine or stool, syncope or a near syncopal episode, recent trauma or falls, bowel incontinence, bladder incontinence, bowel retention, bladder retention, or any other complaints at this time. Onset (ago): week(s) (1) Severity: mild Relieving factors: none Exacerbating factors: none Associated symptoms: cough Treatments prior to arrival: none Related Data Previous Rx's Medication Instructions Recorded cholecalciferol (vitamin D3) 25 25 mcg PO DAILY 90 days #90 caps 07/03/22 mcg (1,000 unit) capsule benzonatate 100 mg capsule 100 mg PO BID PRN cough 7 days #14 07/08/22 [facility] Allergies Allergy/AdvReac Type Severity Reaction Status Date / Time No Known Allergies Allergy Verified 07/08/22 16:01 [No Known Allergies*] Review of Systems Constitutional: Constitutional: Reports no additional constitutional complaints, Denies chills, Denies fever(s) and Denies night sweats Eyes: Eyes: Reports no additional eye complaints, Denies blurry vision, Denies change in vision, Denies diplopia, Denies eye discharge, Denies loss of vision and Denies eye pain ENT: Denies dizziness Cardiovascular: Cardiovascular: Reports no additional cardiovascular complaints, Denies chest pain, Denies lightheadedness, Denies Loss of Consciousness and Denies dyspnea Respiratory: Respiratory: Reports no additional respiratory complaints, Reports cough and Denies dyspnea Gastrointestinal: Gastrointestinal: Reports no additional gastrointestinal c omplaints, Denies abdominal pain, Denies melena, Denies hematochezia, Denies change in bowel habits and Denies change in stool character Genitourinary: Genitourinary: Denies hematuria, Denies urinary frequency, Denies dysuria, Denies urinary incontinence, Denies urinary hesitancy and Denies urinary urgency Musculoskeletal: Musculoskeletal: Reports no additional musculoskeletal complaints, Denies numbness and Denies tingling Neurologic: Denies dizziness, Denies loss of vision, Denies numbness and Denies tingling Psychiatric: Psychiatric: Reports no additional psychiatric complaints Endocrine: Endocrine: Reports no additional endocrine complaints Hematologic/Lymphatic: Hematologic/Lymphatic: Reports no additional hematologic/lymphatic complaints Allergic/Immunologic: Allergic/Immunologic: Reports no additional allergic/immunologic complaints PMFSH Past Medical History Attestation statement: The following information was validated with the patient. Source: old records reviewed Medical History Allergic rhinitis due to allergen B12 deficiency Breast cyst History of intellectual disability History of vitamin D deficiency Hx of iron deficiency anemia Hx of supraventricular tachycardia Hypovitaminosis D Left foot pain Left knee pain Physical exam Pure hypercholesterolemia Sinus tachycardia Transaminitis Surgical History No pertinent past surgical history Family History Family History Father Cancer Mother Healthy adult Sister Healthy adult Social History Social History Household Members Other:: mom Housing: House Alcohol intake: never Patient Tobacco Use Status: Never used Tobacco Tobacco use type: Cigarette e-Cigarette/Vaping Use: Never Used Second Hand Smoke Exposure: No Advance Directives: No Advance Directives Information Provided: No service: No Current occupational status: employed Current occupation: [employer] Current occupational exposures/hazards: No Cognitive needs: No Hearing needs: No Vision needs: No Physical Exam ED Vital Signs: Vital Signs - 24 hr 07/08/22 16:02 Temperature 99.1 F Pulse Rate 86 Respiratory Rate 18 Blood Pressure 112/94 H Pulse Oximetry 96 Oxygen Delivery Method Room Air BMI result Body Mass Index 19.3 Const General: cooperative, no acute distress, alert and awake Nutritional Appearance: well nourished Orientation/consciousness: patient oriented x3 Limitations: no limitations HENMT Head: Yes normal to inspection and Yes atraumatic Ears: hearing grossly normal bilaterally and external ears normal General nose exam: Normal external nose present, no nasal discharge noted and no epistaxis Face and sinus: Yes normal facial exam, No abrasion and No laceration Mouth: Normal oral and palatal mucosa present, no drooling and no muffled voice Eyes General: appearance normal, both eyes and all related structures Periorbital: periorbital findings normal Eyelids: Yes eyelids normal Conjunctivae: conjunctivae normal Pupils: Equal, round and reactive pupils present EOM: EOMs intact bilaterally Neck Neck: Yes normal visual inspection, Yes full ROM and Yes no lymphadenopathy Chest Chest palpation & inspection: normal inspection of the chest Resp Effort & Inspection: normal respiratory effort and able to speak in complete sentences Auscultation: clear to auscultation bilaterally Cardio Rate: regular rate Rhythm: regular rhythm GI Inspection: Yes normal to inspection Neuro General: patient oriented x3 and moves all extremities Cranial nerves: Yes Equal, round and reactive pupils present Cognition (Neuro): normal cognition Motor exam (neuro): 5/5 motor strength present throughout Sensory Exam: Normal double simultaneous stimulation for sensation Coordination: [id number] test normal Extrem General: Yes normal to inspection, Yes full ROM and Yes capillary refill normal Psych Appearance: grossly normal Mental Status: mental status grossly normal Affect: normal affect Attitude: cooperative Thought process: Normal thought process present Thought content: Normal thought content present Insight: Good insight present (Psych) Medical Decision Making [facility] Narrative Medical decision making narrative: Patient is a 47 year old female presenting to the emergency department today with a persistent cough. Patient's physical exam was unremarkable. Patient's rapid COVID-19 test was positive. I explained my physical exam findings as well as all test results to the patient. I answered all questions asked by the patient. I stressed the importance of the patient taking her medication as prescribed. I stressed the importance of the patient following up with her primary care provider. I stressed the importance of the patient returning to the emergency department immediately if her symptoms were to worsen or if she were to develop any dizziness, shortness of breath, difficulty breathing, chest pain, blurry vision, loss of vision, nausea, vomiting, abdominal pain, fever, chills, back pain, or any other complaints. Patient verbalized agreement and understanding with this treatment plan and discharge. Differential Diagnosis Differential Diagnosis: COVID-19 Medical Records Medical records reviewed: Yes I reviewed the patient's medical records. Lab Data Lab results reviewed: Yes I reviewed the patient's lab results. Labs: Lab Results 07/08/22 07/08/22 Range/Units 16:08 16:08 COVID-19 (MARCELO) Positive A (Negative) COVID-19 Clin Com See Note S. pyogenes GrpA ZABRINA Negative (Negative) Discharge Plan Discharge Clinical Impression: COVID-19 Patient Disposition: Home, Self-Care Instructions: COVID-19 (Coronavirus Disease 2019) (ED) Additional Instructions: Follow up with your primary care provider. Return to the emergency department immediately if your symptoms worsen or if you develop any dizziness, shortness of breath, difficulty breathing, chest pain, blurry vision, loss of vision, nausea, vomiting, abdominal pain, fever, chills, back pain, or any other complaints. Prescriptions: New benzonatate 100 mg capsule 100 mg PO BID PRN (Reason: cough) 7 Days Qty: 14 0RF No Action cholecalciferol (vitamin D3) 25 mcg (1,000 unit) capsule 25 mcg PO DAILY 90 Days Qty: 90 1RF Referrals: Maranda Pardo MD [Primary Care Provider] - Stand Alone Forms: Work/School Release Interventions: ED Discharge Assessment Last Done: 07/08/22 17:05 Discharge Date/Time: 07/08/22 17:06 Print Language: Macedonian
[2022-07-08 16:49] LABS: IDNOW Serial# 55D5AD1C
[2022-07-08 16:50] LABS: COVID-19 Test Positive (Negative)
[2022-07-08 16:56] LABS: Strep A Nucleic Acid Negative (Negative)
== END 2022-07-08 17:06 | disposition home or self-care (01) ==
PROVIDERS: Physician Assistant Medical; Emergency Provider Student in an Organized Health Care Education/Training Program; PCP Internal Medicine
DX: U07.1 COVID-19 (principal); R05.9 Cough, unspecified; R50.9 Fever, unspecified; R42 Dizziness and giddiness; Z79.899 Other long term (current) drug therapy
CPT/HCPCS: 87635; 87651; 99283

== ENCOUNTER 2022-08-03 09:25 | Outpatient (REF) | payer MEDICARE, MEDICAID, SELFPAY ==
[2022-08-03 09:43] LABS: MANUAL DIFF FLAG NO
[2022-08-03 10:53] LABS: Eosinophils Absolute Auto 0.1 X10*3/uL (0.0-0.4); Eosinophils Percent Auto 2.9 % (0-4); Hematocrit 40.5 % (37.0-47.0); Hemoglobin 12.8 g/dl (12.0-16.0); Lymphocytes Absolute Auto 1.4 X10*3/uL (1.2-4.9); Lymphocytes Percent Auto 45.4 % (20-40); Mean Corpuscular HGB Conc 31.6 g/dl (31.0-35.0); Mean Corpuscular Volume 85.4 fL (80.0-98.0); Mean Platelet Volume 10.6 fL (9.4-12.3); Monocytes Absolute Auto 0.3 X10*3/uL (0.1-1.2); Monocytes Percent Auto 9.6 % (2-11); Neutrophils Absolute Auto 1.3 x10*3/uL (2.0-8.3); Neutrophils Percent Auto 41.1 % (45-73); Platelet Count 179 X10*3/uL (160-400); Red Blood Count 4.74 X10*6/uL (4.20-5.50); Red Cell Distribution Width 13.2 % (11.0-16.0); White Blood Count 3.1 X10*3/uL (4.8-10.8)
[2022-08-03 11:26] LABS: Alanine Aminotransferase 13 U/L (0-31); Albumin Level 4.8 g/dL (3.5-5.0); Alkaline Phosphatase 100 U/L (39-117); Anion Gap 17 (12-20); Aspartate Amino Transferase 24 U/L (5-31); Bilirubin Total 1.7 mg/dL (0.0-1.0); Blood Urea Nitrogen 12 mg/dL (9-16); Carbon Dioxide 23 mmol/L (22-29); Chloride 105 mmol/L (96-108); Cholesterol 229 mg/dL; Estimated Glomerular Filt Rate > 60; Glucose Fasting 90 mg/dL (60-99); HDL Cholesterol 51 mg/dL; LDL Cholesterol Calculated 156 mg/dl; Sodium 141 mmol/L (135-145); Total Protein 7.6 g/dL (6.5-8.0); Triglycerides 112 mg/dL
[2022-08-03 11:32] LABS: Vitamin D 25-OH Total 14.8 ng/mL (>30)
== END 2022-08-03 09:26 | disposition home or self-care (01) ==
LOC: HO.LAB 09:25
PROVIDERS: PCP Internal Medicine; Visit Provider Internal Medicine
DX: Z20.822 Contact with and (suspected) exposure to COVID-19 (principal); M54.50 Low back pain, unspecified; E55.9 Vitamin D deficiency, unspecified; E78.5 Hyperlipidemia, unspecified; M54.16 Radiculopathy, lumbar region
CPT/HCPCS: 36415; 80053; 80061; 82306; 85025; 87635; C9803

== ENCOUNTER 2022-08-03 09:51 | Outpatient (REF) | payer MEDICARE, MEDICAID, SELFPAY ==
[2022-08-03 10:29] LABS: COVID-19 Test Negative (Negative)
== END 2022-08-03 09:52 | disposition home or self-care (01) ==
LOC: HO.LAB 09:51
PROVIDERS: Visit Provider Internal Medicine
DX: Z13.89 Encounter for screening for other disorder (principal)
CPT/HCPCS: 87635; C9803

== ENCOUNTER → 2022-11-06 12:02 | Outpatient (BNVA) | payer MEDICARE, MEDICAID, SELFPAY | PROVIDERS: PCP Internal Medicine; Referring Provider Internal Medicine; Visit Provider Internal Medicine | DX: I95.0 Idiopathic hypotension (principal); I49.1 Atrial premature depolarization; I49.3 Ventricular premature depolarization | CPT/HCPCS: 93005; 99212 ==

== ENCOUNTER 2023-01-18 08:56 | Outpatient (REF) | payer MEDICARE, MEDICAID, SELFPAY ==
[2023-01-18 09:37] LABS: COVID-19 Test Negative (Negative); IDNOW Serial# BCCEAD1C
== END 2023-01-18 08:57 | disposition home or self-care (01) ==
LOC: HO.LAB 08:56
PROVIDERS: Visit Provider Internal Medicine
DX: Z20.822 Contact with and (suspected) exposure to COVID-19 (principal)
CPT/HCPCS: 87635; C9803

== ENCOUNTER 2023-02-26 10:35 | Outpatient (REF) | payer MEDICARE, MEDICAID, SELFPAY ==
--- NOTE | ~2023-02-26 | MM_ITS ---
EXAMINATION: MM SCREENING DIGITAL BREAST TOMOSYNTHESIS, BILATERAL CLINICAL INFORMATION: Screening. Asymptomatic. The lifetime risk of breast cancer based on the Tyrer-Cuzick Model is 12%. COMPARISON: Mammography: 02/20/2022, 04/05/2021, 03/28/2021, 05/05/2019; left breast ultrasound 04/05/2021 TECHNIQUE: Digital breast tomosynthesis is performed in both the craniocaudal and mediolateral oblique views along with computer-aided detection (CAD). Synthesized 2D images are generated from the tomosynthesis. FINDINGS: The breasts are heterogeneously dense, which may obscure small masses (ACR BI-RADS breast composition Category c). There are no significant masses, abnormal calcifications, or other abnormalities. The cyst posterior 3:00 left breast is decreased, no longer clearly visualized. No developing density or architectural abnormality. The axilla and skin contours are unremarkable. MM/MM tomosynthesis screening BI IMPRESSION: No mammographic evidence of malignancy. ASSESSMENT: BI-RADS 2: Benign RECOMMENDATION: Routine annual mammography screening. This patient's information was entered into a reminder system with a target due date for their next mammogram.
== END 2023-02-26 10:36 | disposition home or self-care (01) ==
LOC: HO.MAMMO 10:35
PROVIDERS: PCP Internal Medicine; Visit Provider Internal Medicine
DX: Z12.31 Encounter for screening mammogram for malignant neoplasm of breast (principal)
CPT/HCPCS: 77063; 77067

== ENCOUNTER 2023-03-29 07:33 | Outpatient (REF) | payer MEDICARE, MEDICAID, SELFPAY ==
[2023-03-29 09:06] LABS: Alanine Aminotransferase 10 U/L (0-31); Albumin Level 4.5 g/dL (3.5-5.0); Alkaline Phosphatase 91 U/L (39-117); Anion Gap 12 (12-20); Aspartate Amino Transferase 22 U/L (5-31); Bilirubin Total 1.8 mg/dL (0.0-1.0); Blood Urea Nitrogen 15 mg/dL (9-16); Carbon Dioxide 25 mmol/L (22-29); Chloride 108 mmol/L (96-108); Cholesterol 197 mg/dL; Estimated Glomerular Filt Rate > 60; Glucose Fasting 91 mg/dL (60-99); HDL Cholesterol 55 mg/dL; LDL Cholesterol Calculated 129 mg/dl; Potassium 3.6 mmol/L (3.3-5.1); Sodium 141 mmol/L (135-145); Total Protein 7.5 g/dL (6.5-8.0); Triglycerides 68 mg/dL
[2023-03-29 09:21] LABS: TSH reflex Free T4 1.32 uIU/mL (0.32-4.0)
== END 2023-03-29 07:34 | disposition home or self-care (01) ==
LOC: HO.LAB 07:33
PROVIDERS: PCP Internal Medicine; Visit Provider Nurse Practitioner Family
DX: Z00.00 Encounter for general adult medical examination without abnormal findings (principal); Z13.220 Encounter for screening for lipoid disorders; Z13.29 Encounter for screening for other suspected endocrine disorder; E78.00 Pure hypercholesterolemia, unspecified
CPT/HCPCS: 36415; 80053; 80061; 84443

== ENCOUNTER 2023-06-04 07:06 | Outpatient (AMB) | payer MEDICARE, MEDICAID, SELFPAY ==
--- NOTE | 2023-06-04 07:07 | MHC.PC.OV ---
Intake Visit Reasons: headaches Allergies No Known Allergies [No Known Allergies*] Allergy (Verified 06/04/23 07:08) Medication List - Last Reconciled 06/04/23 by AN Andrew omeprazole 20 mg PO DAILY pravastatin 20 mg PO BEDTIME 90 days Tobacco use date assessed: 06/04/23 Dental Screening Dental Screen Date: 06/04/23 Did you have a dental visit in the last 12 months?: Yes Did you have a dental problem in the last 6 months where you did not have access to dental care?: No Was dental information given to patient?: Patient has dentist HPI HPI Comments History of Present Illness Details 48-year-old female past medical history significant for to intellectual disability, vitamin B12 deficiency and hyperlipidemia.?Patient of Dr. Burrell last seen in March for SAWV. Patient presents today for [facility] for headache. Patient reports getting very painful headaches on top of your head. Patient states Last for a couple hours and resolve. Patient states did take Tylenol on Saturday with no relief of the pain. Nausea, vomiting, photophobia, dizziness or vision changes associated with the headache. Denies fever, chills, cough and shortness of breath. [facility] Medical History Allergic rhinitis due to allergen B12 deficiency Breast cyst History of intellectual disability History of vitamin D deficiency Hx of iron deficiency anemia Hx of supraventricular tachycardia Hypovitaminosis D Left foot pain Left knee pain Physical exam Pure hypercholesterolemia Sinus tachycardia Transaminitis Surgical History No pertinent past surgical history Family History Father Cancer Mother Healthy adult Sister Healthy adult Social History Household Members: Family Household Members Other:: mom Housing: House Alcohol intake: never Patient Tobacco Use Status: Never used Tobacco e-Cigarette/Vaping Use: Never Used Second Hand Smoke Exposure: No service: No Current occupational status: employed Current occupation: [employer] Current occupational exposures/hazards: No Cognitive needs: No Hearing needs: No Vision needs: No Questionnaire PHQ-9 Over the last 2 weeks, how often have you been bothered by any of the following problems? 1. Little interest or pleasure in doing things: not at all 2. Feeling down, depressed, or hopeless: not at all 3. Trouble falling or staying asleep, or sleeping too much: not at all 4. Feeling tired or having little energy: not at all 5. Poor appetite or overeating: not at all 6. Feeling bad about yourself - or that you are a failure or have let yourself or your family down: not at all 7. Trouble concentrating on things, such as reading the newspaper or watching television: not at all 8. Moving or speaking so slowly that other people could have noticed. Or the opposite - being so fidgety or restless that you have been moving around a lot more than usual: not at all 9. Thoughts that you would be better off or of hurting yourself in some way: not at all Total score: 0 Depression Screening Interpretation: Negative 56620 - PHQ-9 Billing: Yes Source: Developed by Drs. He Lilly, Stephy Hernandez, Saúl Ni and colleagues, with an educational dodie from [employer]. Thrive Questionnaire Date Thrive assessed: 03/26/23 AUDIT C Alcohol Use Questionnaire (AUDIT-C) 1. How often do you have a drink containing alcohol?: Never 3. How often do you have six or more drinks on one occasion?: Never Total Score: 0 ALBERT-7 AMB Questionnaire ALBERT-7 Date ABLERT - 7 assessed: 03/26/23 Source: Developed by Drs. He Lilly, Saúl Marsh and colleagues, with an educational dodie from [employer]. Review of Systems Const Denies chills, Denies fatigue, Denies fever(s), Reports headache(s) and Denies poor appetite Eyes Denies no additional complaints ENT Reports Normal hearing present, Denies dizziness and Reports headache(s) Card Denies chest pain, Denies syncope, Denies rapid heart rate and Denies dyspnea Resp Denies cough and Denies dyspnea Neuro Reports Normal hearing present, Denies dizziness, Denies syncope and Reports headache(s) Endo Denies fatigue Physical exam (Primary Care) Vital Signs: Unable to complete Telehealth exam Tobacco/Smoking Status: Tobacco use Status Tobacco use date assessed 06/04/23 06/04/23 07:09 Patient Tobacco Use Status Never used Tobacco 06/04/23 07:09 Tobacco use type 01/15/23 14:26 e-Cigarette/Vaping Use Never Used 06/04/23 07:09 PHQ-9: PHQ-9 Score PHQ-9: Total score 0 06/04/23 07:09 Depression Screening Interpretation: Negative Thrive Assessment: Date of Thrive Assessment Date Thrive assessed 03/26/23 06/04/23 07:09 Neuro Cranial nerves: Yes Normal hearing present Telehealth Telehealth Location of provider rendering services: practice address Location of patient: address on file Patient Identification confirmed using: Name, : Yes Telehealth method: voice only Patient verbally consented to treatment: Yes Patient verbally consented to billing insurance company: Yes Patient informed of any privacy concerns related to visit: Yes Minutes spent on Phone/Video with Pt.: 5 Assessment and Plan Assessment & Plan (1) Headache: Code(s): R51.9 - Headache, unspecified Plan: Will send ibuprofen 400 mg q.8 hours as needed for headaches. Patient advised to take ibuprofen with food to prevent GI upset. Signs and symptoms reviewed with patient when to follow-up with PCP or seek emergency medical attention. (2) Dyspepsia: Code(s): R10.13 - Epigastric pain Plan: Continue on omeprazole. ?Avoid the foods that cause that, usually spicy foods, tomato products, juices, coffee, soda and foods that you're sensitive to.? After eating do not lie down, allow 3-4 hours before lying down. And keep the head of the bed above 30 degrees to avoid the acid from going up. (3) Pure hypercholesterolemia: Code(s): E78.00 - Pure hypercholesterolemia, unspecified Plan: Continue on pravastatin 20 mg at bedtime. Avoid fried foods, chicken skin, eggs, butter,margarine, pastries and? red meat. Plan Keep scheduled follow up with pcp or follow up sooner if needed Medications: New ibuprofen 400 mg PO Q8H PRN 20 tabs 0RF pain R51.9 - Headache, unspecified Coding Level of Care Code Tele Est Pt Level 3 (15430) Diagnoses Headache R51.9 Dyspepsia R10.13 Pure hypercholesterolemia E78.00
== END 2023-06-04 07:20 | disposition home or self-care (01) ==
LOC: HO.HMGH 07:06
PROVIDERS: PCP Internal Medicine; Visit Provider Nurse Practitioner Family
DX: R51.9 Headache, unspecified (principal); R10.13 Epigastric pain; E78.00 Pure hypercholesterolemia, unspecified
CPT/HCPCS: 99441

== ENCOUNTER 2023-07-13 09:37 | Emergency (ER) | payer MEDICARE, MEDICAID, SELFPAY ==
[2023-07-13 09:52] VITALS: BP 103/78; PULSE 85; RESP 15; TEMP 35.9; O2SAT 99; BMI 22.8
--- NOTE | 2023-07-13 10:02 | ED.URI ---
HPI - URI/Sore Throat General Chief Complaint: Upper Respiratory Symptoms Stated Complaint: cough Time Seen by Provider: 07/13/23 09:58 Source: patient Mode of arrival: ambulatory Limitations: no limitations History of Present Illness HPI Narrative: 48 yo female previously healthy here with 4 days of dry cough, nasal congestion, rhinorrhea, body aches. No fevers, chills, diff breathing, chest pain, skin rash, headache, neck pain or stiffness. Related Data Previous Rx's Medication Instructions Recorded pravastatin 20 mg tablet 20 mg PO BEDTIME 90 days #90 tabs 11/17/22 omeprazole 20 mg capsule,delayed 20 mg PO DAILY #30 caps 03/26/23 release ibuprofen 400 mg tablet 400 mg PO Q8H PRN pain #20 tabs 06/04/23 benzonatate 100 mg capsule 100 mg PO BID PRN cough 5 days #10 07/10/23 caps benzonatate 200 mg capsule 200 mg PO TID PRN cough #20 caps 07/13/23 fluticasone propionate 50 2 spray intranasal DAILY #16 grams 07/13/23 mcg/actuation nasal spray,suspension (Flonase Allergy Relief) loratadine 10 mg tablet (Claritin) 10 mg PO DAILY PRN allergic 07/13/23 symptoms #30 tabs Allergies Allergy/AdvReac Type Severity Reaction Status Date / Time No Known Allergies Allergy Verified 06/04/23 07:08 [No Known Allergies*] Review of Systems Review of Systems: Yes all other systems are reviewed and are negative Constitutional: Constitutional: Reports no additional constitutional complaints, Reports body ache(s), Denies chills, Denies fever(s), Denies headache(s) and Denies weakness Eyes: Eyes: Reports no additional eye complaints and Denies change in vision ENT: Reports system reviewed and no additional complaints, except as documented, Denies dizziness, Denies headache(s), Denies nasal congestion, Denies nasal discharge and Denies neck pain Cardiovascular: Cardiovascular: Reports no additional cardiovascular complaints, Denies chest pain, Denies leg edema and Denies dyspnea Respiratory: Respiratory: Reports no additional respiratory complaints, Reports cough and Denies dyspnea Gastrointestinal: Gastrointestinal: Reports no additional gastrointestinal complaints, Denies abdominal pain, Denies diarrhea, Denies nausea and Denies vomiting Genitourinary: Genitourinary: Reports no additional female genitourinary complaints and Denies urinary incontinence Musculoskeletal: Musculoskeletal: Reports no additional musculoskeletal complaints, Denies back pain, Denies arthralgias, Denies joint swelling, Denies neck pain, Denies numbness and Denies tingling Integumentary/Breasts: Skin/Breast: Reports system reviewed and no additional complaints, except as docu and Denies rash Neurologic: Reports system reviewed and no additional complaints, except as documented, Denies Abnormal speech present, Denies dizziness, Denies headache(s), Denies numbness, Denies tingling and Denies weakness [facility] Past Medical History Attestation statement: The following information was validated with the patient. Source: old records reviewed and nursing notes reviewed Medical History Physical exam Breast cyst Left knee pain Left foot pain Allergic rhinitis due to allergen Sinus tachycardia B12 deficiency Hypovitaminosis D Pure hypercholesterolemia Transaminitis History of intellectual disability History of vitamin D deficiency Hx of iron deficiency anemia Hx of supraventricular tachycardia Surgical History No pertinent past surgical history Family History Family History Father Cancer Mother Healthy adult Sister Healthy adult Social History Social History Household Members: Family Household Members Other:: mom Housing: House Alcohol intake: never Patient Tobacco Use Status: Never used Tobacco e-Cigarette/Vaping Use: Never Used Second Hand Smoke Exposure: No Advance Directives: No Advance Directives Information Provided: No service: No Current occupational status: employed Current occupation: [employer] Current occupational exposures/hazards: No Cognitive needs: No Hearing needs: No Vision needs: No Physical Exam Vital Signs: Vital Signs: Last Vital Signs Temp 96.7 F L 07/13/23 09:52 Pulse 85 07/13/23 09:52 Resp 15 07/13/23 09:52 BP 103/78 07/13/23 09:52 Pulse Ox 99 07/13/23 09:52 O2 Del Method Room Air 07/13/23 09:52 BMI result Body Mass Index 22.8 Const: General: cooperative, healthy appearing, comfortable and no acute distress Orientation/consciousness: patient oriented x3 Limitations: no limitations HEENT: Head: Yes normal to inspection Ears: hearing grossly normal bilaterally and TM's normal bilaterally General nose exam: Normal external nose present Face and sinus: Yes normal facial exam Mouth: Normal oral and palatal mucosa present Throat: Yes posterior oropharynx normal, Yes tonsils normal and Yes uvula midline Eyes: General: appearance normal, both eyes and all related structures Pupils: Equal, round and reactive pupils present Neck: Neck: Yes normal visual inspection, Yes full ROM, Yes no lymphadenopathy and Yes no meningeal signs Chest: Chest palpation & inspection: normal inspection of the chest Resp: Effort & Inspection: normal respiratory effort Auscultation: clear to auscultation bilaterally Cardio: Rate: regular rate Rhythm: regular rhythm Peripheral pulses: Peripheral pulses 2+ throughout GI: Inspection: Yes normal to inspection Palpation (GI): Soft to palpation and nontender Auscultation: normal bowel sounds Back/Spine/Pelvis: Thoracic/Lumbar Spine: thoracic and lumbar spine normal to inspection Skin: General skin exam: no rashes or lesions noted Neuro: General: patient oriented x3, no meningeal signs, no focal motor deficits and normal sensation to monofilament Cranial nerves: Yes Equal, round and reactive pupils present Cognition (Neuro): normal cognition Speech: No Abnormal speech present Gait exam (Neuro): Normal gait present Motor exam (neuro): 5/5 motor strength present throughout Extrem: General: Yes normal to inspection, Yes no pedal edema and Yes no calf tenderness Course Course Course Narrative: Testing for flu/covid are negative. Likely viral syndrome. Patient will be sent home with supportive care, Reviewed worrisome signs and symptoms and when to return to the emergency room. Comfortable plan for discharge home. Medical Decision Making Medical Decision Making [facility] Narrative: 48 yo female previously healthy here with 4 days of dry cough, nasal congestion, rhinorrhea, body aches. No fevers, chills, diff breathing, chest pain, skin rash, headache, neck pain or stiffness Exam benign Will send testing for flu/covid Differential Diagnosis Differential Diagnoses: The differential diagnosis associated with the presentation includes viral syndrome AOM, pharyngitis, PNA-low concern Admission/Observation Consideration of admission/observation: Escalation of care including admission/observation considered no hypoxia requiring supplemental oxygen, patient non-toxic, afebrile Lab Data [facility] Lab Attestation statement: I reviewed the patient's lab results. Negative flu/covid testing Labs: Lab Results 07/13/23 Range/Units 10:00 COVID-19 (MARCELO) Negative (Negative) COVID-19 Clin Com See Note Influenza Type A (ZABRINA) Negative (Negative) Influenza Type B (ZABRINA) Negative (Negative) Influenza A & B Note See Note Tests considered The following testing was considered but not selected: Lungs are clear, low concern for PNA no need for CXR Prescription Management I considered prescription management with: Antibiotic Less then 5 days of symptoms, no evidence of AOM or strep pharyngitis, LS with no concern for PNA, non toxic appearing Discharge Plan Discharge Clinical Impression: Viral infection Patient Disposition: Home, Self-Care Instructions: Viral Syndrome (ED) Additional Instructions: Take motrin or tylenol for pain or fever Increase fluids at home and rest Your testing for flu and covid are negative Return for shortness of breath, chest pain Prescriptions: New benzonatate 200 mg capsule 200 mg PO TID PRN (Reason: cough) Qty: 20 0RF loratadine [Claritin] 10 mg tablet 10 mg PO DAILY PRN (Reason: allergic symptoms) Qty: 30 0RF fluticasone propionate [Flonase Allergy Relief] 50 mcg/actuation spray,suspension 2 spray intranasal DAILY Qty: 16 0RF Rx Instructions: administer into each nostril No Action pravastatin 20 mg tablet 20 mg PO BEDTIME 90 Days Qty: 90 1RF benzonatate 100 mg capsule 100 mg PO BID PRN (Reason: cough) 5 Days Qty: 10 0RF ibuprofen 400 mg tablet 400 mg PO Q8H PRN (Reason: pain) Qty: 20 0RF omeprazole 20 mg capsule,delayed release(DR/EC) 20 mg PO DAILY Qty: 30 3RF Referrals: Maranda Pardo MD [Primary Care Provider] - 1 week Interventions: ED Discharge Assessment Last Done: 07/13/23 11:06 Discharge Date/Time: 07/13/23 11:07
[2023-07-13 10:17] LABS: COVID-19 Test Negative (Negative); IDNOW Serial# 08D9AD1C
[2023-07-13 10:18] LABS: IDNOW Serial# BCCEAD1C; Influenza A Negative (Negative); Influenza B2 Negative (Negative)
== END 2023-07-13 11:07 | disposition home or self-care (01) ==
PROVIDERS: Emergency Provider Emergency Medicine; PCP Internal Medicine
DX: B34.9 Viral infection, unspecified (principal); R05.9 Cough, unspecified; Z20.822 Contact with and (suspected) exposure to COVID-19; E78.00 Pure hypercholesterolemia, unspecified; Z79.899 Other long term (current) drug therapy
CPT/HCPCS: 87502; 87635; 99282; 99283

== ENCOUNTER 2023-07-17 08:21 | Outpatient (AMB) | payer MEDICARE, MEDICAID, SELFPAY ==
--- NOTE | 2023-07-17 08:45 | A.OFFPC_ITS ---
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 Accompanied by: Self / Same As Patient Allergies No Known Allergies [No Known Allergies*] Allergy (Verified 07/17/23 09:07) Medication List - Last Reconciled 07/17/23 by Sheng Lewis MD benzonatate 100 mg PO BID PRN 5 days fluticasone propionate 50 mcg/actuation (Flonase Allergy Relief) 2 sprays intranasal DAILY ibuprofen 400 mg PO Q8H PRN loratadine (Claritin) 10 mg PO DAILY PRN omeprazole 20 mg PO DAILY pravastatin 20 mg PO BEDTIME 90 days Tobacco use date assessed: 07/17/23 Dental Screening Dental Screen Date: 07/17/23 Did you have a dental visit in the last 12 months?: Yes Did you have a dental problem in the last 6 months where you did not have access to dental care?: No Was dental information given to patient?: Patient has dentist HPI cough HPI Details Patient comes in today complaining of recurrent non-productive cough for over a week now Recalls experiencing some sore throat about a week ago but denies any fever Did get tested for COVID and flu this past weekend and tests came back negative Relates (+) runny nose as well - has been using her nasal spray and taking Claritin with (+) relief Notes that her cough seem to be worse in the morning She denies any headaches or dizziness Denies any chest pains, no SOB No nausea/vomiting, no abdominal pain No change in bowel habits noted [facility] Medical History (Updated 07/17/23 @ 09:20 by Sheng Lewis MD) Breast cyst Left knee pain Left foot pain Allergic rhinitis due to allergen Sinus tachycardia B12 deficiency Hypovitaminosis D Pure hypercholesterolemia Transaminitis History of intellectual disability History of vitamin D deficiency Hx of iron deficiency anemia Hx of supraventricular tachycardia Surgical History No pertinent past surgical history Family History Father Cancer Mother Healthy adult Sister Healthy adult Social History Household Members: Family Household Members Other:: mom Housing: House Alcohol intake: never Patient Tobacco Use Status: Never used Tobacco e-Cigarette/Vaping Use: Never Used Second Hand Smoke Exposure: No service: No Current occupational status: employed Current occupation: [employer] Current occupational exposures/hazards: No Cognitive needs: No Hearing needs: No Vision needs: No Questionnaire PHQ-9 Over the last 2 weeks, how often have you been bothered by any of the following problems? 1. Little interest or pleasure in doing things: not at all 2. Feeling down, depressed, or hopeless: not at all 3. Trouble falling or staying asleep, or sleeping too much: not at all 4. Feeling tired or having little energy: not at all 5. Poor appetite or overeating: not at all 6. Feeling bad about yourself - or that you are a failure or have let yourself or your family down: not at all 7. Trouble concentrating on things, such as reading the newspaper or watching t elevision: not at all 8. Moving or speaking so slowly that other people could have noticed. Or the opposite - being so fidgety or restless that you have been moving around a lot more than usual: not at all 9. Thoughts that you would be better off or of hurting yourself in some way: not at all Total score: 0 Depression Screening Interpretation: Negative Depression Screening Done: Yes 26190 - PHQ-9 Billing: Yes Source: Developed by Drs. He Lilly, Stephy Hernandez, Saúl Ni and colleagues, with an educational dodie from [employer]. Thrive Questionnaire Date Thrive assessed: 07/17/23 I am a: Patient What is your living situation today?: I have a steady place to live Within the past 12 months, did the food you bought not last and you didn't have the money to get more?: Never true Within the past 12 months, did you worry whether your food would run out before you got money to buy more?: Never true Do you have trouble paying for medicines?: No Do you have trouble getting transportation to medical appointments?: No Do you have trouble paying your heating and electricity bill?: No Do you have trouble taking care of your child, family member or friend?: No Do you have trouble with day-to-day activities such as bathing, preparing meals, shopping, managing finances, etc.?: No Are you currently unemployed and looking for a job?: No Are you interested in more education?: No Please select the resources that you would like help with: None Currently or been in a relationship where the following occur: no concerns reported AUDIT C Alcohol Use Questionnaire (AUDIT-C) 1. How often do you have a drink containing alcohol?: Never 3. How often do you have six or more drinks on one occasion?: Never Total Score: 0 Score Reviewed/Action Taken: Yes ALBERT-7 AMB Questionnaire ALBERT-7 Date ALBERT - 7 assessed: 07/17/23 Feeling nervous, anxious, or on edge: 0 = Not at all Not being able to stop or control worryin = Not at all Worrying too much about different things: 0 = Not at all Trouble relaxin = Not at all Being so restless that it is hard to sit still: 0 = Not at all Becoming easily annoyed or irritable: 0 = Not at all Feeling afraid as if something awful might happen: 0 = Not at all Total ALBERT-7 score (0-4 normal; 5-9 mild; 10-14 moderate; 15-21 severe): 0 Source: Developed by Drs. He Lilly, Stephy Hernandez, Saúl Ni and colleagues, with an educational dodie from [employer]. Review of Systems Const Denies chills, Denies fatigue, Denies fever(s) and Denies headache(s) ENT Denies dysphagia, Denies dizziness, Denies otalgia, Denies headache(s), Denies nasal congestion, Reports nasal discharge (clear), Denies neck pain, Denies odynophagia, Denies sinus pain and Denies sore throat Card Denies chest pain, Denies palpitations and Denies dyspnea Resp Denies chest congestion, Reports cough (non-productive) and Denies dyspnea GI Denies abdominal pain, Denies constipation, Denies dysphagia, Denies heartburn, Denies diarrhea, Denies nausea, Denies odynophagia and Denies vomiting Denies difficulty voiding, Denies nocturia and Denies dysuria Musc Denies neck pain Neuro Denies dizziness and Denies headache(s) Endo Denies fatigue and Denies palpitations Physical exam (Primary Care) Vital Signs: Last Vital Signs Pulse 89 07/17/23 08:46 BP 122/82 07/17/23 08:46 Pulse Ox 93 07/17/23 08:46 Oxygen Delivery Method Room Air 07/17/23 08:46 BMI result Body Mass Index 22.6 Tobacco/Smoking Status: Tobacco use Status Tobacco use date assessed 07/17/23 07/17/23 08:54 Patient Tobacco Use Status Never used Tobacco 07/17/23 08:54 Tobacco use type 01/15/23 14:26 e-Cigarette/Vaping Use Never Used 07/17/23 08:54 PHQ-9: PHQ-9 Score PHQ-9: Total score 0 07/17/23 08:54 Depression Screening Interpretation: Negative Thrive Assessment: Date of Thrive Assessment Date Thrive assessed 07/17/23 07/17/23 08:54 Currently or been in a relationship where the following occur: no concerns reported Const General: no acute distress and alert HENMT Ears: TM's normal bilaterally and EAC's normal General nose exam: Nasal discharge present clear Throat: Yes posterior oropharynx normal and Yes tonsils normal (no TP congestion) Neck Neck: Yes no lymphadenopathy and Yes supple Resp Auscultation: clear to auscultation bilaterally, no rales and no wheezes Cardio Rate: regular rate Rhythm: regular rhythm Heart sounds: no murmurs GI Palpation (GI): Soft to palpation, nontender and No hepatosplenomegaly present Skin Rashes: no rashes Extrem General: Yes no clubbing, cyanosis or edema Assessment and Plan Assessment & Plan (1) Recurrent non-productive cough: Code(s): R05.8 - Other specified cough Plan: Advised that her recurrent cough is most likely due to a respiratory tract infection (most likely viral) although she did test negative for COVID and flu this past weekend OR due to allergies and related to changing of the seasons Have advised her to continue taking Claritin and using her nasal spray PRN for symptomatic relief Will start her empirically on Azithromycin QD x 5 days Advised patient to call if her symptoms persist or get worse over the next couple of weeks, otherwise, can just return at her next scheduled appointment Plan Follow up with PCP as scheduled in September 2023 Medications: New azithromycin take 500 mg today (day 1), then 250 mg for 4 days (days 2-5) PO 6 tabs 0RF Coding Level of Care Code Est Pt Level 3 (20369) Diagnoses Recurrent non-productive cough R05.8
[2023-07-17 08:46] VITALS: BP 122/82; PULSE 89; O2SAT 93; BMI 22.6
== END 2023-07-17 09:27 | disposition home or self-care (01) ==
PROVIDERS: PCP Internal Medicine; Visit Provider Internal Medicine
DX: R05.8 Other specified cough (principal)
CPT/HCPCS: 99213

== ENCOUNTER 2023-08-02 13:58 | Outpatient (REF) | payer MEDICARE, MEDICAID, SELFPAY ==
[2023-08-03 11:57] LABS: BV Int Neg Control Negative (Negative); BV Int Pos Control Positive (Positive)
== END 2023-08-02 13:59 | disposition home or self-care (01) ==
LOC: HO.LNP 13:58
PROVIDERS: PCP Internal Medicine; Visit Provider Advanced Practice Midwife
DX: N95.0 Postmenopausal bleeding (principal); N89.8 Other specified noninflammatory disorders of vagina; R23.2 Flushing
CPT/HCPCS: 81025; 87480; 87510; 87660; 99212

== ENCOUNTER 2023-08-02 13:58 | Outpatient (AMB) | payer MEDICARE, MEDICAID, SELFPAY ==
[2023-08-02 14:39] VITALS: BP 106/64; BMI 22.5
--- NOTE | 2023-08-02 14:39 | MHC.OFFVIS ---
Intake Vital Signs 08/02/23 14:39 Height 5 ft 1 in Weight 119 lb BMI 22.5 BP 106/64 Intake Visit Reasons: vaginal bleeding Intake Note: The patient agreed to use of a medical office specialist during this encounter. Scribed for HARI Jaeger by Ele Whitehead, medical office specialist, on 08/02/2023 at 2:59 pm EST. Citrix Lead Required: No Information Interpreted: non-clinical & clinical Cable Repairer: Cable Repairer Present (Sharla Webersatya SHAH) Accompanied by: Self / Same As Patient Allergies No Known Allergies [No Known Allergies*] Allergy (Verified 08/02/23 14:40) HPI HPI Comments History of Present Illness Details She is here today with concerns of vaginal bleeding last week for 4 days. Reports vaginal itching. Currently has a boyfriend but is not sexually active. Both wear masks while they are together. Has used Depo in the past for a long time and did not have VB when she stopped. Reports hot flashes. Denies having COVID or cortisone injections recently. [facility] Medical History (Updated 08/02/23 @ 15:21 by Ele Whitehead) Hot flashes PMB (postmenopausal bleeding) Breast cyst Left knee pain Left foot pain Allergic rhinitis due to allergen Sinus tachycardia B12 deficiency Hypovitaminosis D Pure hypercholesterolemia Transaminitis History of intellectual disability History of vitamin D deficiency Hx of iron deficiency anemia Hx of supraventricular tachycardia Surgical History No pertinent past surgical history Family History Father Cancer Mother Healthy adult Sister Healthy adult Social History Household Members: Family Household Members Other:: mom Housing: House Alcohol intake: never Patient Tobacco Use Status: Never used Tobacco e-Cigarette/Vaping Use: Never Used Second Hand Smoke Exposure: No service: No Current occupational status: employed Current occupation: [employer] Current occupational exposures/hazards: No Cognitive needs: No Hearing needs: No Vision needs: No Physical Exam Vital Signs: Last Vital Signs BP 106/64 08/02/23 14:39 BMI result Body Mass Index 22.5 Const General: cooperative, healthy appearing, comfortable, no acute distress, well developed, alert and awake Other: superficial bleeding with speculum brushing against right side wall. General: Yes bladder normal to palpation External Female Exam: normal external appearance and normal appearance of the urethra Speculum Exam - Vagina: normal appearance of the vagina, normal palpation and vagina atrophic Speculum Exam - Cervix: normal appearance of the cervix and normal palpation Bimanual exam- vagina & uterus: normal bimanual exam, normal palpation, bladder normal to palpation and normal palpation Bimanual Exam- Adnexa, other: normal adnexae and no masses Results AMB Test Urine AMB Test Urine Negative Last Edit by Sharla Figueroa CMA on 08/02/23 14:55 Results Reviewed Results Reviewed: Laboratory Last Values Tst Clinic Negative 08/02/23 14:54 Laboratory Tests 02/08/22 12:46 FSH 78.7 Assessment & Plan Assessment & Plan (1) PMB (postmenopausal bleeding): Code(s): N95.0 - Postmenopausal bleeding Plan: Discussed: Work up including pelvic US, labs and EMB. Follow up in person for US and lab results. The EMB purpose was explained to rule out atypia, hyperplasia and uterine cancer. Reviewed procedure and instructed to take ibuprofen with food 1 hour prior to procedure. All of her questions and concerns were addressed to the best of my ability and shared decision making. She is agreeable to plan of care. (2) Vaginal itching: Code(s): N89.8 - Other specified noninflammatory disorders of vagina Plan: BV testing done today. Await results and treat accordingly. (3) Hot flashes: Code(s): R23.2 - Flushing Orders: Orders Bacterial Vaginosis Panel Today N95.0 - Postmenopausal bleeding AMB HCG Urine Test Today Z32.02 - Encounter for test, result negative US pelvic complete Today N95.0 - Postmenopausal bleeding Coding Level of Care Code Est Pt Level 3 (86374) Diagnoses PMB (postmenopausal bleeding) N95.0 Vaginal itching N89.8 Hot flashes R23.2
== END 2023-08-02 15:23 | disposition home or self-care (01) ==
LOC: HO.HWS 13:58
PROVIDERS: PCP Internal Medicine; Visit Provider Advanced Practice Midwife
DX: N95.0 Postmenopausal bleeding (principal); N89.8 Other specified noninflammatory disorders of vagina; R23.2 Flushing; Z32.02 Encounter for pregnancy test, result negative
CPT/HCPCS: 99213

== ENCOUNTER 2023-09-03 09:32 | Outpatient (REF) | payer MEDICARE, MEDICAID, SELFPAY ==
--- NOTE | ~2023-09-03 | US_ITS ---
EXAMINATION: US PELVIS CLINICAL INFORMATION: Postmenopausal bleeding more than one year. Patient declined transvaginal ultrasound as unable to tolerate exam per oil gauger's statement. COMPARISON: Pelvic ultrasound 07/10/2016. TECHNIQUE: Ultrasound of the pelvis is performed using both transabdominal and transvaginal transducers along with Doppler. Transvaginal imaging is performed due to inadequate visualization transabdominally. FINDINGS: The uterus measures 5.6 x 2.3 x 4.0 cm. No discrete fibroids are identified. Limited visualization of the uterus and endometrium as bladder was under distended, patient unable to wait for bladder to fill, and patient refused transvaginal ultrasound imaging. Limited images of the endometrium demonstrate double wall thickness of 4 mm. Large complex fluid/lesion within the endometrial cavity is very difficult to characterize due to severely limited visualization. Transvaginal ultrasound imaging recommended for further evaluation if patient is able to tolerate exam. Alternatively, MRI could be considered for better visualization. Gynecologic consultation recommended to determine further management. Right ovary measures 1.2 x 2.2 x 1.8 cm, volume 2.5 mL. Left ovary measures 2.2 x 1.4 x 1.7 cm, volume 2.6 mL. Bilateral ovaries were poorly visualized. No significant free fluid appreciated. US/US pelvic complete IMPRESSION: Limited images of the endometrium demonstrate double wall thickness of 4 mm. Large complex fluid/lesion within the endometrial cavity is very difficult to characterize due to severely limited visualization. Transvaginal ultrasound imaging recommended for further evaluation if patient is able to tolerate exam. Per oil gauger, patient declined transvaginal ultrasound images and refused to wait for bladder to fill to improve visualization at time of exam. Alternatively, MRI could be considered for better visualization. Gynecologic consultation recommended to determine further management.
== END 2023-09-03 09:33 | disposition home or self-care (01) ==
LOC: HO.US 09:32
PROVIDERS: PCP Internal Medicine; Visit Provider Advanced Practice Midwife
DX: N95.0 Postmenopausal bleeding (principal)
CPT/HCPCS: 76856

== ENCOUNTER 2023-09-20 09:47 | Outpatient (AMB) | payer MEDICARE, MEDICAID, SELFPAY ==
[2023-09-20 10:10] VITALS: BP 116/70; BMI 22.9
--- NOTE | 2023-09-20 10:10 | A.OFFVIS_ITS ---
Intake Vital Signs 09/20/23 10:10 Height 5 ft 1 in Weight 121 lb BMI 22.9 BP 116/70 Intake Visit Reasons: EMB/US Follow up Testing Manager Required: No Information Interpreted: non-clinical & clinical Sdet: Sdet Present (Sharla SHAH) Accompanied by: Self / Same As Patient Allergies No Known Allergies [No Known Allergies*] Allergy (Verified 09/20/23 10:11) HPI HPI Comments History of Present Illness Details Signed Patient: Jud Silva Patient is here today for follow-up ultrasound. She has a history of postmenopausal bleeding and pelvic pain. MR#: [id number] : 1975 Acct:[id number] Age/Sex: 48 / F ADM Date: 09/03/23 Loc: HO.US Attending Dr: Georgina Barlow CNM Ordering Physician: Georgina Barlow CNM Date of Service: 09/03/23 Procedure(s): US pelvic complete Accession Number(s): [id number] cc: Georgina Barlow CNM; Maranda Pardo MD~ EXAMINATION: US PELVIS CLINICAL INFORMATION: Postmenopausal bleeding more than one year. Patient declined transvaginal ultrasound as unable to tolerate exam per commercial floor covering installer's statement. COMPARISON: Pelvic ultrasound 07/10/2016. TECHNIQUE: Ultrasound of the pelvis is performed using both transabdominal and transvaginal transducers along with Doppler. Transvaginal imaging is performed due to inadequate visualization transabdominally. FINDINGS: The uterus measures 5.6 x 2.3 x 4.0 cm. No discrete fibroids are identified. Limited visualization of the uterus and endometrium as bladder was under distended, patient unable to wait for bladder to fill, and patient refused transvaginal ultrasound imaging. Limited images of the endometrium demonstrate double wall thickness of 4 mm. Large complex fluid/lesion within the endometrial cavity is very difficult to characterize due to severely limited visualization. Transvaginal ultrasound imaging recommended for further evaluation if patient is able to tolerate exam. Alternatively, MRI could be considered for better visualization. Gynecologic consultation recommended to determine further management. Right ovary measures 1.2 x 2.2 x 1.8 cm, volume 2.5 mL. Left ovary measures 2.2 x 1.4 x 1.7 cm, volume 2.6 mL. Bilateral ovaries were poorly visualized. No significant free fluid appreciated. US/US pelvic complete IMPRESSION: Limited images of the endometrium demonstrate double wall thickness of 4 mm. Large complex fluid/lesion within the endometrial cavity is very difficult to characterize due to severely limited visualization. Transvaginal ultrasound imaging recommended for further evaluation if patient is able to tolerate exam. Per commercial floor covering installer, patient declined transvaginal ultrasound images and refused to wait for bladder to fill to improve visualization at time of exam. Alternatively, MRI could be considered for better visualization. Gynecologic consultation recommended to determine further management. Dictated By: Krys Griffin MD Signed By: <Electronically signed by Krys Griffin MD in OV> [facility] Medical History Hot flashes PMB (postmenopausal bleeding) Breast cyst Left knee pain Left foot pain Allergic rhinitis due to allergen Sinus tachycardia B12 deficiency Hypovitaminosis D Pure hypercholesterolemia Transaminitis History of intellectual disability History of vitamin D deficiency Hx of iron deficiency anemia Hx of supraventricular tachycardia Surgical History No pertinent past surgical history Family History Father Cancer Mother Healthy adult Sister Healthy adult Social History Household Members: Family Household Members Other:: mom Housing: House Alcohol intake: never Patient Tobacco Use Status: Never used Tobacco e-Cigarette/Vaping Use: Never Used Second Hand Smoke Exposure: No service: No Current occupational status: employed Current occupation: [employer] Current occupational exposures/hazards: No Cognitive needs: No Hearing needs: No Vision needs: No Physical Exam Vital Signs: Last Vital Signs BP 116/70 09/20/23 10:10 BMI result Body Mass Index 22.9 Const Other: Tearful when discussing test results today. General: cooperative and no acute distress Results AMB Test Urine AMB Test Urine Negative Last Edit by Sharla Figueroa CMA on 10:12 Results Reviewed Results Reviewed: Laboratory Last Values Tst Clinic Negative 09/20/23 10:12 Assessment & Plan Assessment & Plan (1) Encounter to discuss test results: Code(s): Z71.2 - Person consulting for explanation of examination or test findings (2) PMB (postmenopausal bleeding): Code(s): N95.0 - Postmenopausal bleeding (3) Uterine mass: Code(s): N85.8 - Other specified noninflammatory disorders of uterus Plan Discuss: Ultrasound findings and limitations of study due to a trans abdominal views only as patient was not able to tolerate the exam. Due to the concern for the mass and the need to determine findings includings: benign, atypia, pre malignancy, or malignant cells patient was advised to have an endometrial biopsy and a follow-up MRI for further diagnostics and imaging of the uterine lesion. She admits that she would not be able to tolerate an endometrial biopsy procedure without anesthesia. And she also request a female OBGYN provider as she is not comfortable with a male provider. She was informed we do not have an male OBGYN in our office and she accepted a referral to [facility] to their OBGYN department for further assessment of postmenopausal bleeding. She agrees to complete the MRI and declines any risk factors/contraindications to having the MRI completed. Staff will assist her in making that appointment for the MRI and referral to the job training specialist. I advised her to bring her mom in for her visit, she was pretty anxious and may need some further assistance with explanations and direction for plan of care. All of her questions and concerns were addressed to the best of my ability and shared decision making. She is agreeable to the plan of care. Orders: Orders AMB HCG Urine Test Today Z32.02 - Encounter for test, result negative MR pelvis wo/w con Today N85.8 - Other specified noninflammatory disorders of uterus, N95.0 - Postmenopausal bleeding Referrals ELECTRONIC SCALE ASSEMBLER AND TESTER Referral N85.8 - Other specified noninflammatory disorders of uterus, N95.0 - Postmenopausal bleeding Coding Level of Care Code Est Pt Level 3 (75448) Diagnoses Encounter to discuss test results Z71.2 PMB (postmenopausal bleeding) N95.0 Uterine mass N85.8
== END 2023-09-20 15:01 | disposition home or self-care (01) ==
LOC: HO.HWS 09:47
PROVIDERS: PCP Internal Medicine; Visit Provider Advanced Practice Midwife
DX: Z71.2 Person consulting for explanation of examination or test findings (principal); N95.0 Postmenopausal bleeding; N85.8 Other specified noninflammatory disorders of uterus; Z32.02 Encounter for pregnancy test, result negative
CPT/HCPCS: 99213

== ENCOUNTER → 2023-09-20 09:47 | Outpatient (BNVA) | payer MEDICARE, MEDICAID, SELFPAY | PROVIDERS: PCP Internal Medicine; Visit Provider Advanced Practice Midwife | DX: Z71.2 Person consulting for explanation of examination or test findings (principal); N95.0 Postmenopausal bleeding; N85.8 Other specified noninflammatory disorders of uterus | CPT/HCPCS: 81025; 99212 ==

== ENCOUNTER 2023-09-24 09:13 | Outpatient (AMB) | payer MEDICARE, MEDICAID, SELFPAY ==
[2023-09-24 09:16] VITALS: BP 112/60; BMI 23.0
--- NOTE | 2023-09-24 09:16 | A.OFFPC_ITS ---
Vital Signs 09/24/23 09:16 Height 5 ft 1 in Weight 122 lb BMI 23.0 BP 112/60 Blood Pressure Location Lt brachial Position Sitting Intake Visit Reasons: 6 month f/u Intake Note: Patient here for a 6 month follow up, c/o pelvic pains stated seen by SHOT CORE DRILL OPERATOR HELPER and had ultrasound would like the results reviewed Agriculture Science Teacher Required: No Accompanied by: Self / Same As Patient Allergies No Known Allergies [No Known Allergies*] Allergy (Verified 09/24/23 09:29) Medication List - Last Reconciled 09/24/23 by Maranda Moran MD No Known Home Meds Tobacco use date assessed: 07/17/23 Dental Screening Dental Screen Date: 09/24/23 Did you have a dental visit in the last 12 months?: Yes Did you have a dental problem in the last 6 months where you did not have access to dental care?: No Was dental information given to patient?: Patient has dentist HPI HPI Comments History of Present Illness Details This is a 48-year-old female with mild developmental delay that comes for follow-up on her pelvic pain and dyspepsia. Dyspepsia has been stable with diet. Still has pelvic pain and had an ultrasound but she refused to have a transvaginal ultrasound. She needs hysteroscopy and biopsy but patient is afraid and anxious about surgery. I encouraged her to have to surgery and follow-up with OBGYN. [facility] Medical History Hot flashes PMB (postmenopausal bleeding) Breast cyst Left knee pain Left foot pain Allergic rhinitis due to allergen Sinus tachycardia B12 deficiency Hypovitaminosis D Pure hypercholesterolemia Transaminitis History of intellectual disability History of vitamin D deficiency Hx of iron deficiency anemia Hx of supraventricular tachycardia Surgical History No pertinent past surgical history Family History Father Cancer Mother Healthy adult Sister Healthy adult Social History Household Members: Family Household Members Other:: mom Housing: House Alcohol intake: never Patient Tobacco Use Status: Never used Tobacco e-Cigarette/Vaping Use: Never Used Second Hand Smoke Exposure: No service: No Current occupational status: employed Current occupation: [employer] Current occupational exposures/hazards: No Cognitive needs: No Hearing needs: No Vision needs: No Questionnaire Thrive Questionnaire Date Thrive assessed: 07/17/23 ALBERT-7 AMB Questionnaire ALBERT-7 Date ALBERT - 7 assessed: 07/17/23 Source: Developed by Drs. He Lilly, Stephy Hernandez, Saúl Ni and colleagues, with an educational dodie from [employer]. Review of Systems Const All systems reviewed & are unremarkable except as noted in HPI and below Eyes Reports no additional complaints, Denies change in vision and Denies other visual disturbances Card Denies chest pain at rest, Denies chest pain with activity, Denies edema, Denies irregular heart rhythm, Denies claudication, Denies dyspnea, Denies dyspnea on exertion, Denies orthopnea, Denies paroxysmal nocturnal dyspnea and Denies slow heart rate Resp Denies cough, Denies dyspnea and Denies dyspnea on exertion GI Reports abdominal pain, Denies change in bowel habits, Denies excessive flatus, Denies nausea and Denies vomiting Denies urinary incontinence, Denies urinary hesitancy and Denies urinary urgency Musc Denies abnormal gait, Denies atrophy, Denies deformity and Denies limited range of motion Skin/Breast Denies bleeding lesions, Denies changing lesions and Denies rash Neuro Denies abnormal gait and Denies lack of coordination Physical exam (Primary Care) Vital Signs: Last Vital Signs BP 112/60 09/24/23 09:16 BMI result Body Mass Index 23.0 Tobacco/Smoking Status: Tobacco use Status Tobacco use date assessed 07/17/23 09/24/23 09:20 Patient Tobacco Use Status Never used Tobacco 09/24/23 09:20 Tobacco use type 01/15/23 14:26 e-Cigarette/Vaping Use Never Used 09/24/23 09:20 Thrive Assessment: Date of Thrive Assessment Date Thrive assessed 07/17/23 09/24/23 09:20 Eyes General: appearance normal, both eyes and all related structures Eyelids: Yes eyelids normal Conjunctivae: conjunctivae normal Neck Neck: Yes normal visual inspection and Yes supple Resp Effort & Inspection: normal respiratory effort Auscultation: clear to auscultation bilaterally Cardio Jugular venous distension: no JVD Rate: regular rate Rhythm: regular rhythm Heart sounds: S1 normal heart sound present and S2 normal heart sound present Extrem General: Yes full ROM Assessment and Plan Assessment & Plan (1) Dyspepsia: Code(s): R10.13 - Epigastric pain Plan: Stable with diet (2) Pelvic pain in female: Code(s): R10.2 - Pelvic and perineal pain Plan: Follow-up with OBGYN. Patient was encouraged to have hysteroscopy. She is afraid of not working after surgery. Orders: Referrals Cologuard Test Z12.11 - Encounter for screening for malignant neoplasm of colon, Z12.12 - Encounter for screening for malignant neoplasm of rectum Coding Level of Care Code Est Pt Level 3 (86726) Diagnoses Dyspepsia R10.13 Pelvic pain in female R10.2 Time Spent (min) 17
== END 2023-09-24 09:38 | disposition home or self-care (01) ==
PROVIDERS: PCP Internal Medicine; Visit Provider Internal Medicine
DX: R10.13 Epigastric pain (principal); R10.2 Pelvic and perineal pain
CPT/HCPCS: 99213

== ENCOUNTER 2024-01-15 07:37 | Outpatient (AMB) | payer MEDICARE, MEDICAID, SELFPAY ==
[2024-01-15 07:48] VITALS: BP 118/80; BMI 24.0
--- NOTE | 2024-01-15 07:48 | MHC.PC.OV ---
Vital Signs 01/15/24 07:48 Height 5 ft 1 in Weight 127 lb BMI 24.0 BP 118/80 Blood Pressure Location Lt brachial Position Sitting Intake Visit Reasons: body aches Intake Note: patient here for follow up body pains/ joints Security Flex Officer Required: No Accompanied by: Self / Same As Patient Allergies No Known Allergies [No Known Allergies*] Allergy (Verified 01/15/24 08:03) Medication List - Last Reconciled 01/15/24 by Maranda Moran MD No Known Home Meds Tobacco use date assessed: 01/15/24 Dental Screening Dental Screen Date: 01/15/24 Did you have a dental visit in the last 12 months?: Yes Did you have a dental problem in the last 6 months where you did not have access to dental care?: No Was dental information given to patient?: Patient has dentist HPI HPI Comments History of Present Illness Details This is a 49-year-old female that comes today complaining of thoracic spine pain that started about 2 months ago and happens when she is laying on her back. She also has lumbar pain radiating to both legs with no leg numbness. No fever, bowel or bladder incontinence. Last Pap smear was October 2023 and had an endometrial biopsy which was negative. Needs a new Cologuard order because as per patient never received the box. [facility] Medical History (Updated 01/15/24 @ 08:13 by Maranda Moran MD) Hot flashes PMB (postmenopausal bleeding) Breast cyst Left knee pain Left foot pain Allergic rhinitis due to allergen Sinus tachycardia B12 deficiency Hypovitaminosis D Pure hypercholesterolemia Transaminitis History of intellectual disability History of vitamin D deficiency Hx of iron deficiency anemia Hx of supraventricular tachycardia Surgical History No pertinent past surgical history Family History Father Cancer Mother Healthy adult Sister Healthy adult Social History Household Members: Family Household Members Other:: mom Housing: House Alcohol intake: never Patient Tobacco Use Status: Never used Tobacco e-Cigarette/Vaping Use: Never Used Second Hand Smoke Exposure: No service: No Current occupational status: employed Current occupation: [employer] Current occupational exposures/hazards: No Cognitive needs: No Hearing needs: No Vision needs: No Questionnaire PHQ-9 Over the last 2 weeks, how often have you been bothered by any of the following problems? 1. Little interest or pleasure in doing things: not at all 2. Feeling down, depressed, or hopeless: not at all 3. Trouble falling or staying asleep, or sleeping too much: not at all 4. Feeling tired or having little energy: not at all 5. Poor appetite or overeating: not at all 6. Feeling bad about yourself - or that you are a failure or have let yourself or your family down: not at all 7. Trouble concentrating on things, such as reading the newspaper or watching television: not at all 8. Moving or speaking so slowly that other people could have noticed. Or the opposite - being so fidgety or restless that you have been moving around a lot more than usual: not at all 9. Thoughts that you would be better off or of hurting yourself in some way: not at all Total score: 0 Depression Screening Interpretation: Negative Depression Screening Done: Yes 05451 - PHQ-9 Billing: Yes Source: Developed by Drs. He Lilly, Stephy Hernandez, Saúl iN and colleagues, with an educational dodie from [employer]. Thrive Questionnaire Date Thrive assessed: 01/15/24 I am a: Patient What is your living situation today?: I have a steady place to live Within the past 12 months, did the food you bought not last and you didn't have the money to get more?: Never true Within the past 12 months, did you worry whether your food would run out before you got money to buy more?: Never true Do you have trouble paying for medicines?: No Do you have trouble getting transportation to medical appointments?: No Do you have trouble paying your heating and electricity bill?: No Do you have trouble taking care of your child, family member or friend?: No Do you have trouble with day-to-day activities such as bathing, preparing meals, shopping, managing finances, etc.?: No Are you currently unemployed and looking for a job?: No Are you interested in more education?: No Please select the resources that you would like help with: None Currently or been in a relationship where the following occur: no concerns reported THRIVE Score: 0 AUDIT C Alcohol Use Questionnaire (AUDIT-C) 1. How often do you have a drink containing alcohol?: Never Total Score: 0 ALBERT-7 AMB Questionnaire ALBERT-7 Date ALBERT - 7 assessed: 01/15/24 Feeling nervous, anxious, or on edge: 0 = Not at all Not being able to stop or control worryin = Not at all Worrying too much about different things: 0 = Not at all Trouble relaxin = Not at all Being so restless that it is hard to sit still: 0 = Not at all Becoming easily annoyed or irritable: 0 = Not at all Feeling afraid as if something awful might happen: 0 = Not at all Total ALBERT-7 score (0-4 normal; 5-9 mild; 10-14 moderate; 15-21 severe): 0 Source: Developed by Drs. He Lilly, Stephy Hernandez, Saúl Ni and colleagues, with an educational dodie from [employer]. ALBERT-7 Assessment Billing ALBERT-7 Assessment Tool: ALBERT-7 Assessment 05915 Review of Systems Const All systems reviewed & are unremarkable except as noted in HPI and below Eyes Reports no additional complaints, Denies change in vision and Denies other visual disturbances Card Denies chest pain at rest, Denies chest pain with activity, Denies edema, Denies irregular heart rhythm, Denies claudication, Denies dyspnea, Denies dyspnea on exertion, Denies orthopnea, Denies paroxysmal nocturnal dyspnea and Denies slow heart rate Resp Denies cough, Denies dyspnea and Denies dyspnea on exertion Musc Reports back pain Physical exam (Primary Care) Vital Signs: Last Vital Signs BP 118/80 01/15/24 07:48 BMI result Body Mass Index 24.0 Tobacco/Smoking Status: Tobacco use Status Tobacco use date assessed 01/15/24 01/15/24 07:53 Patient Tobacco Use Status Never used Tobacco 01/15/24 07:53 Tobacco use type 01/15/23 14:26 e-Cigarette/Vaping Use Never Used 01/15/24 07:53 PHQ-9: PHQ-9 Score PHQ-9: Total score 0 01/15/24 08:05 Depression Screening Interpretation: Negative Thrive Assessment: Date of Thrive Assessment Date Thrive assessed 01/15/24 01/15/24 07:53 Currently or been in a relationship where the following occur: no concerns reported Resp Effort & Inspection: normal respiratory effort Auscultation: clear to auscultation bilaterally Cardio Jugular venous distension: no JVD Rate: regular rate Rhythm: regular rhythm Heart sounds: S1 normal heart sound present and S2 normal heart sound present Back/Spine/Pelvis Thoracic/Lumbar Spine: straight leg raise negative bilaterally and thoracic spinal tenderness Extrem General: Yes full ROM Assessment and Plan Assessment & Plan (1) Thoracic spine pain: Code(s): M54.6 - Pain in thoracic spine Plan: X-ray ordered. Start physical therapy. Use ibuprofen as needed for severe pain. (2) Lumbar radiculopathy: Code(s): M54.16 - Radiculopathy, lumbar region Plan: X-ray ordered. Start physical therapy. Use ibuprofen as needed for severe pain. Orders: Orders XR thoracic spine 2V Today M54.6 - Pain in thoracic spine XR lumbar spine 2-3V Today M54.16 - Radiculopathy, lumbar region PT Evaluation and Treatment Today M54.16 - Radiculopathy, lumbar region PT Evaluation and Treatment Today M54.6 - Pain in thoracic spine Referrals Cologuard Test Z12.11 - Encounter for screening for malignant neoplasm of colon, Z12.12 - Encounter for screening for malignant neoplasm of rectum Coding Level of Care Code Est Pt Level 3 (35057) Diagnoses Thoracic spine pain M54.6 Lumbar radiculopathy M54.16 Additional Codes ALBERT-7 Assessment Billing - ALBERT-7 Assessment Tool: ALBERT-7 Assessment 03553 ([id number]) Time Spent (min) 19
== END 2024-01-15 08:14 | disposition home or self-care (01) ==
PROVIDERS: PCP Internal Medicine; Visit Provider Internal Medicine
DX: M54.6 Pain in thoracic spine (principal); M54.16 Radiculopathy, lumbar region
CPT/HCPCS: 99213

== ENCOUNTER 2024-01-20 08:37 | Outpatient (REF) | payer MEDICARE, MEDICAID, SELFPAY ==
--- NOTE | ~2024-01-20 | XR_ITS ---
EXAMINATION: XR LUMBOSACRAL SPINE CLINICAL INFORMATION: Radiculopathy COMPARISON: Previous lumbar spine x-ray November 2021 TECHNIQUE: Three views of the lumbosacral spine. FINDINGS: Mild curvature of the lower lumbar spine to the left. Bone alignment otherwise normal. No fracture or dislocation. Mild degenerative spondylosis at L4-L5. Normal disc spaces. Lower lumbar spine facet arthritis. XR/XR lumbar spine 2-3V IMPRESSION: Degenerative changes.
--- NOTE | ~2024-01-20 | XR_ITS ---
EXAMINATION: XR THORACOLUMBAR SPINE CLINICAL INFORMATION: Pain COMPARISON: None available. TECHNIQUE: 3 views of the thoracic spine including swimmer's view FINDINGS: Bone alignment is normal. No fracture or dislocation. Normal disc spaces. Normal paraspinal soft tissues. XR/XR thoracic spine 2V IMPRESSION: Unremarkable exam.
== END 2024-01-20 08:38 | disposition home or self-care (01) ==
LOC: HO.MAMMO 08:37
PROVIDERS: PCP Internal Medicine; Visit Provider Internal Medicine
DX: M54.6 Pain in thoracic spine (principal); M54.16 Radiculopathy, lumbar region
CPT/HCPCS: 72070; 72100

== ENCOUNTER 2024-02-11 11:15 | Outpatient (REF) | payer MEDICARE, SELFPAY ==
[2024-02-11 12:56] LABS: Influenza A PCR NEGATIVE (Negative); Influenza B PCR NEGATIVE (Negative); Resp Syncy Virus RNA Qual PCR NEGATIVE (Negative); SARS COV2 PCR INHOUSE NEGATIVE (Negative)
== END 2024-02-11 11:16 | disposition home or self-care (01) ==
LOC: HO.LAB 11:15
PROVIDERS: PCP Internal Medicine; Visit Provider Internal Medicine
DX: R09.89 Other specified symptoms and signs involving the circulatory and respiratory systems (principal)
CPT/HCPCS: 0241U

== ENCOUNTER 2024-03-31 09:07 | Outpatient (AMB) | payer MEDICARE, MEDICAID, SELFPAY ==
--- NOTE | 2024-03-31 09:49 | A.OFFVIS_ITS ---
Intake Vital Signs 03/31/24 09:51 Height 5 ft 1 in Weight 127 lb BMI 24.0 BP 112/76 Blood Pressure Location Lt brachial Position Sitting Intake Visit Reasons: Medicare Wellness Rehab Technician Required: No Accompanied by: Self / Same As Patient Allergies No Known Allergies [No Known Allergies*] Allergy (Verified 03/31/24 10:10) Medication List - Last Reconciled 03/31/24 by Maranda Moran MD No Known Home Meds HPI HPI Comments History of Present Illness Details This is a 49 year old female with mild major depression that comes for her annual wellness exam. She has mild developmental delay and was not able to do the mini-mental properly. Depression is present and I will start her on medications. Follow up visit requested. Mammogram was February 2023 and I will order another mammogram. Declines colonoscopy and I will order cologuard again in which she has said that she has never received it. Pap smear was done less than 5 years ago and was normal with negative HPV. PPP handed to patient. Her healthcare proxy is her mother and I gave her the papers to fill out. [facility] Medical History (Updated 03/31/24 @ 11:44 by Maranda Moran MD) Hot flashes PMB (postmenopausal bleeding) Breast cyst Left knee pain Left foot pain Allergic rhinitis due to allergen Sinus tachycardia B12 deficiency Hypovitaminosis D Pure hypercholesterolemia Transaminitis History of intellectual disability History of vitamin D deficiency Hx of iron deficiency anemia Hx of supraventricular tachycardia Surgical History No pertinent past surgical history Family History Father Cancer Mother Healthy adult Sister Healthy adult Social History Household Members: Family Household Members Other:: mom Housing: House Alcohol intake: never Patient Tobacco Use Status: Never used Tobacco e-Cigarette/Vaping Use: Never Used Second Hand Smoke Exposure: No service: No Current occupational status: employed Current occupation: [employer] Current occupational exposures/hazards: No Cognitive needs: No Hearing needs: No Vision needs: No Questionnaire Medicare Wellness Checkup What gender do you identify with?: female During the past 4 weeks, how much have you been bothered by emotional problems such as feeling anxious, depressed, irritable, sad or downhearted, and blue?: not at all During the past 4 weeks, has your physical & emotional health limited your social activities with family, friends, neighbors, or groups?: not at all During the past 4 weeks, how much bodily pain have you generally had?: very mild pain During the past 4 weeks, was someone available to help you if you needed & wanted help?: yes, quite a bit During the past 4 weeks, what was the hardest physical activity you could do for at least 2 minutes?: light Can you get to places out of walking distance without help? (For eg., can you travel alone on buses, taxis or drive your car?): Yes Can you go shopping for groceries or clothes without someone's help?: Yes Can you prepare your own meals?: Yes Can you do your housework without help?: Yes Because of any health problems, do you need the help of another person with your personal care needs such as eating, bathing, dressing or getting around the house?: No Can you handle your own money without help?: Yes During the past 4 weeks, how would you rate your health in general?: fair During the past 4 weeks how have things been going for you?: pretty well Are you having difficulties driving your car?: not applicable, I don't use a car Do you always fasten your seat belt when you are in a car?: yes, usually During past 4 weeks, have you been bothered by the following: never: Sexual prob lems?, Trouble eating well?, Teeth or denture problems? and Problems using the telephone? and often: Falling or dizzy when standing up and Tiredness or fatigue? Have you fallen 2 or more times in the past year?: Yes Are you afraid of falling?: Yes Are you a smoker?: no During the past 4 weeks, how many drinks of wine, beer, or other alcoholic beverages did you have?: no alcohol at all Do you exercise for about 20 minutes 3 or more times a week?: no, I usually do not exercise this much Have you been given information to help with the following?: no: Hazards in your house that might hurt you? and no: Keeping track of your medications? How often do you have trouble taking medicines the way you have been told to take them?: I do not have to take medicine How confident are you that you can control & manage most of your health problems?: somewhat confident What is your race?: Black or Mini Mental State Exam (MMSE) Orientation What is the (year) (season) (date) (day) (month)?: season, date, day and month Where are we (state) (county) (town or city) (hospital) (floor)?: state, county, town or city, hospital/clinic and floor Registration Name of 3 unrelated objects clearly and slowly, then ask patient to repeat all 3 of them. (1st repeat determines score. Make sure they can repeat all three): object 1, object 2 and object 3 Recall Ask patient to repeat the 3 items from question #3.: object 1, object 2 and object 3 Language Show patient a wristwatch & ask what it is. Repeat for pencil.: watch and pencil Ask the patient to repeat the phrase 'No ifs, ands, or buts' after you.: incorrect Ask the patient to 'take a piece of paper with their right hand' 'fold paper in half' 'place paper on floor': take paper in right hand, fold paper in half and place paper on floor Print the sentence 'CLOSE YOUR EYES' on a piece. If patient actually closes eyes then score.: followed written direction Score Score: 21 Activity of Daily Living Bathing - sponge bath, tub bath or shower: receives no assistance (gets in/out by self, if usual bathing means Dressing - getting clothes from closets & drawers, including inner/outer garments & fasteners.: gets clothes & gets completely dressed without help Toileting - going to the 'toilet room' for urine/bowel elimination & cleaning self/arranging clothes: goes to toilet room, cleans self, arranges clothes without help Transfer: moves in & out of bed and chair without help (may use support object) Continence: controls urination/bowel movements completely by self Feeding: feeds self without help Total Score: 0 Information obtained from: patient Using telephone: independent Traveling: independent Shopping: independent Preparing meals: needs assistance Housework: needs assistance Taking medicine: independent Managing money: needs assistance PHQ-9 Over the last 2 weeks, how often have you been bothered by any of the following problems? 1. Little interest or pleasure in doing things: not at all 2. Feeling down, depressed, or hopeless: not at all 3. Trouble falling or staying asleep, or sleeping too much: several days 4. Feeling tired or having little energy: several days 5. Poor appetite or overeating: several days 6. Feeling bad about yourself - or that you are a failure or have let yourself or your family down: not at all 7. Trouble concentrating on things, such as reading the newspaper or watching television: not at all 8. Moving or speaking so slowly that other people could have noticed. Or the opposite - being so fidgety or restless that you have been moving around a lot more than usual: more than half the days 9. Thoughts that you would be better off or of hurting yourself in some way: not at all Total score: 5 Depression Screening Interpretation: Positive Depression Screening Follow-up: Existing condition, New Medication prescribed and Follow-up Visit Requested Depression Screening Done: Yes 50909 - PHQ-9 Billing: Yes Source: Developed by Drs. He Lilly, Stephy Hernandez, Saúl Ni and colleagues, with an educational dodie from [employer]. ALBERT-7 AMB Questionnaire ALBERT-7 Date ALBERT - 7 assessed: 03/31/24 Feeling nervous, anxious, or on edge: 0 = Not at all Not being able to stop or control worryin = Not at all Worrying too much about different things: 0 = Not at all Trouble relaxin = Not at all Being so restless that it is hard to sit still: 0 = Not at all Becoming easily annoyed or irritable: 0 = Not at all Feeling afraid as if something awful might happen: 0 = Not at all Total ALBERT-7 score (0-4 normal; 5-9 mild; 10-14 moderate; 15-21 severe): 0 Source: Developed by Drs. He Lilly, Stephy Hernandez, Saúl Ni and colleagues, with an educational dodie from [employer]. ALBERT-7 Assessment Billing ALBERT-7 Assessment Tool: ALBERT-7 Assessment 25518 Thrive Questionnaire Date Thrive assessed: 03/31/24 I am a: Patient What is your living situation today?: I have a steady place to live Within the past 12 months, did the food you bought not last and you didn't have the money to get more?: Never true Within the past 12 months, did you worry whether your food would run out before you got money to buy more?: Never true Do you have trouble paying for medicines?: No Do you have trouble getting transportation to medical appointments?: No Do you have trouble paying your heating and electricity bill?: No Do you have trouble taking care of your child, family member or friend?: No Do you have trouble with day-to-day activities such as bathing, preparing meals, shopping, managing finances, etc.?: No Are you currently unemployed and looking for a job?: No Are you interested in more education?: No Please select the resources that you would like help with: None Currently or been in a relationship where the following occur: no concerns reported THRIVE Score: 0 AUDIT C Alcohol Use Questionnaire (AUDIT-C) 1. How often do you have a drink containing alcohol?: Never Total Score: 0 Review of Systems Const All systems reviewed & are unremarkable except as noted in HPI and below Card Denies chest pain at rest, Denies chest pain with activity, Denies edema, Denies irregular heart rhythm, Denies claudication, Denies dyspnea, Denies dyspnea on exertion, Denies orthopnea, Denies paroxysmal nocturnal dyspnea and Denies slow heart rate Resp Denies cough, Denies dyspnea and Denies dyspnea on exertion Physical Exam Vital Signs: Last Vital Signs BP 112/76 03/31/24 09:51 BMI result Body Mass Index 24.0 HEENT Ears: hearing grossly normal bilaterally Resp Effort & Inspection: normal respiratory effort Auscultation: clear to auscultation bilaterally Cardio Jugular venous distension: no JVD Rate: regular rate Rhythm: regular rhythm Heart sounds: S1 normal heart sound present and S2 normal heart sound present Neuro General: no focal motor deficits Romberg Test: Negative Extrem General: Yes full ROM Immunizations Boostrix Tdap 2.5 Lf unit-8 mcg-5 Lf/0.5 mL intramuscular syringe Performing Provider: Maranda Moran MD [facility] Administered by: ALYSSA Gaona on 03/31/24 10:30 Dose Route Admin Location Dispensed Lot Number Expiration Date NDC [employer] 0.5 mL IM Right Deltoid 0.5 mL [id number] 05/22/26 [id number] [place] VIS Given Date VIS Provided VIS Publication Date 03/31/24 Single Vaccine 21 Eligibility Eligibility Date Funding Source Not [facility] Eligible 03/31/24 Private Assessment & Plan Assessment & Plan (1) Encounter for Medicare annual wellness exam: Code(s): Z00.00 - Encounter for general adult medical examination without abnormal findings Plan: Repeat in a year. (2) Mild major depression: Code(s): F32.0 - Major depressive disorder, single episode, mild Plan: Start fluoxetine. Follow-up visit requested. Orders: Orders TDaP Immunization Today Z23 - Encounter for immunization Lipid Panel Today E78.5 - Hyperlipidemia, unspecified MM screening mammo BI Today Z12.31 - Encounter for screening mammogram for malignant neoplasm of breast Vitamin D 25-OH Total Today E55.9 - Vitamin D deficiency, unspecified Comprehensive [place]. Panel Fast Today M54.16 - Radiculopathy, lumbar region Complete Blood Count Auto Diff Today M54.16 - Radiculopathy, lumbar region Referrals Cologuard Test Z12.11 - Encounter for screening for malignant neoplasm of colon, Z12.12 - Encounter for screening for malignant neoplasm of rectum Medications: New fluoxetine 10 mg PO DAILY 90 caps 1RF 90 days F32.0 - Major depressive disorder, single episode, mild Quality Reporting (2019) Depression/Bipolar (159/160/161/177) PHQ-9: Total score: 5 Coding Level of Care Code Medicare First (G0438) Diagnoses Encounter for Medicare annual wellness exam Z00.00 Mild major depression F32.0 CPT Codes Advance Care Planning - Time spent: 1-15 minutes, on File ([id number]) Additional Codes ALBERT-7 Assessment Billing - ALBERT-7 Assessment Tool: ALBERT-7 Assessment 99438 ([id number]) Time Spent (min) 35 Advance Care Planning Advance Care Planning discussion: Exists, not on file Date of discussion: 03/31/24 Who was present: patient and me Forms completed: Health Care Proxy Time spent: 1-15 minutes, on File Actual minutes spent: 1 Did not discuss due to Cultural/Spiritual beliefs: No
[2024-03-31 09:51] VITALS: BP 112/76; BMI 24.0
== END 2024-03-31 10:32 | disposition home or self-care (01) ==
PROVIDERS: PCP Internal Medicine; Visit Provider Internal Medicine
DX: Z23 Encounter for immunization (principal); Z00.00 Encounter for general adult medical examination without abnormal findings; F32.0 Major depressive disorder, single episode, mild
CPT/HCPCS: 1123F; 90471; 90715; G0438

== ENCOUNTER 2024-04-04 09:25 | Outpatient (REF) | payer MEDICARE, SELFPAY ==
[2024-04-04 10:05] LABS: MANUAL DIFF FLAG NO
[2024-04-04 10:32] LABS: Basophils Percent Auto 0.6 % (0-2); Eosinophils Absolute Auto 0.1 X10*3/uL (0.0-0.4); Eosinophils Percent Auto 2.6 % (0-4); Hematocrit 37.9 % (37.0-47.0); Hemoglobin 12.3 g/dl (12.0-16.0); Imm Gran Abs Auto 0.01 X10*3/uL (0.00-0.03); Imm Gran Pct Auto 0.3 % (0.0-0.4); Lymphocytes Absolute Auto 1.3 X10*3/uL (1.2-4.9); Lymphocytes Percent Auto 41.9 % (20-40); Mean Corpuscular HGB Conc 32.5 g/dl (31.0-35.0); Mean Corpuscular Volume 86.1 fL (80.0-98.0); Monocytes Absolute Auto 0.3 X10*3/uL (0.1-1.2); Monocytes Percent Auto 10.3 % (2-11); Neutrophils Absolute Auto 1.4 x10*3/uL (2.0-8.3); Neutrophils Percent Auto 44.3 % (45-73); Platelet Count 173 X10*3/uL (160-400); Red Cell Distribution Width 12.5 % (11.0-16.0); White Blood Count 3.1 X10*3/uL (4.8-10.8)
[2024-04-04 11:26] LABS: Alanine Aminotransferase 11 U/L (0-31); Albumin Level 4.5 g/dL (3.5-5.0); Alkaline Phosphatase 70 U/L (39-117); Anion Gap 12 (12-20); Aspartate Amino Transferase 22 U/L (5-31); Bilirubin Total 0.8 mg/dL (0.0-1.0); Blood Urea Nitrogen 14 mg/dL (9-16); Calcium 9.8 mg/dL (8.4-10.2); Carbon Dioxide 25 mmol/L (22-29); Chloride 109 mmol/L (96-108); Cholesterol 231 mg/dL (<200); Estimated Glomerular Filt Rate > 60; Glucose Fasting 92 mg/dL (60-99); HDL Cholesterol 49 mg/dL (>40); LDL Cholesterol Calculated 164 mg/dL (<100); Potassium 3.9 mmol/L (3.3-5.1); Sodium 142 mmol/L (135-145); Total Protein 7.3 g/dL (6.5-8.0); Triglycerides 91 mg/dL (<150)
[2024-04-04 11:40] LABS: Vitamin D 25-OH Total 15.1 ng/mL (>30)
== END 2024-04-04 09:26 | disposition home or self-care (01) ==
LOC: HO.LAB 09:25
PROVIDERS: PCP Internal Medicine; Visit Provider Internal Medicine
DX: E78.5 Hyperlipidemia, unspecified (principal); E55.9 Vitamin D deficiency, unspecified; M54.16 Radiculopathy, lumbar region
CPT/HCPCS: 36415; 80053; 80061; 82306; 85025

== ENCOUNTER 2024-04-17 14:00 | Outpatient (RCR) | payer MEDICARE, MEDICAID, SELFPAY ==
--- NOTE | 2024-02-11 11:30 | MHC.PT.EP ---
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 SWATI HAS DECR POSTURAL AWARENESS, (+) PELVIC ASYMM, DECR FLEXIBILITY IN LENY LEs, AND DECR SCAPULAR AND LUMBOPELVIC STABILITY. SHE IS MOTIVATED FOR PT AND REDUCING HER BACK PAIN/ LEARNING SELF-MGMT TECHN TO REDUCE HER RISK OF REINJURY. SWATI WOULD BENEFIT FROM PT TO ADDRESS THE ABOVE FINDINGS, IMPROVE TRUNK STRENGTH AND STABILITY , AND PAIN/SX MGMT TECHN. Frequency and Duration: The patient will be seen 1 x WK x 5 WKS Short Term Goals: *DECR MID/LBP TO 1-/10 *INITIATE HEP *IMPROVE LNEY HIP/ LEs FLEXIBILITY *ACTIVATE SCAP RETRACTORS/ DEPRESSORS STABILIZE LUMBOPELVIC Parking Lot Signaler Goals: *Pt DEMON WFL FUNCTIONAL SQUAT *Pt DEMON IMPROVED BODY MECH W 2:2 SIMUL WORK OR ADL TASKS *WFL HIP FLEXIB *Pt RESUME HER REGULAR WALKING/ EXER PROGRAM W/O SX EXACERBATION Treatment Plan: Modalities to reduce pain, spasms and effusion. Manual therapy to restore motion and function. Therapeutic exercise to improve strength and flexibility. Neuromuscular re-education for posture and balance. Therapeutic activities to return to functional activities of daily living. Electronically signed by: IVELISSE VIERAPT Please sign and return to therapist. Thank you for your referral.
--- NOTE | 2024-05-22 15:12 | MHC.PT.DC ---
[facility] [place] Office [place] Office [place] Office [address] Shirley Li [address] [phone] F: [phone] F: [phone] F: [phone] F: [phone] Physical Therapy Discharge Report Diagnosis: LUMBAR RADICULOPATHY Date of Surgery: Date of Evaluation: 02/11/24 Date of Discharge: 05/22/24 Treatments to Date: 7 Cancellations to Date: 0 No Shows to Date: 0 Discharge Status: Achieved Goals Improved Function Independent with HEP Discharge Summary: SWATI HAS MET HER PT GOALS -> SHE IS INDEP W PROGRESSIVE HEP - AND DEMON IMPROVED BODY MECH. HER PAIN HAS SIGNIF DECREASED AND ACTIVITY MARIA DOLORES/ [facility]CT [facility] MARIA DOLORES MUCH IMPROVED. SHE IS D/C THIS DATE. Electronically signed by: IVELISSE VIERA,PT Please sign and return to therapist. Thank you for your referral.
== END 2024-05-22 15:14 | disposition home or self-care (01) ==
LOC: HO.PT 14:00
PROVIDERS: PCP Internal Medicine; Visit Provider Internal Medicine
DX: M54.16 Radiculopathy, lumbar region (principal)
CPT/HCPCS: 97110; 97161

== ENCOUNTER 2024-07-01 08:42 | Outpatient (REF) | payer MEDICARE, MEDICAID, SELFPAY ==
--- NOTE | ~2024-07-01 | MM_ITS ---
EXAMINATION: MM SCREENING DIGITAL BREAST TOMOSYNTHESIS, BILATERAL CLINICAL INFORMATION: Screening. Asymptomatic. COMPARISON: Mammography: Comparison is made with available priors TECHNIQUE: Digital breast mammography with tomosynthesis is performed in both the craniocaudal and mediolateral oblique views along with computer-aided detection (CAD). FINDINGS: There are scattered areas of fibroglandular density (ACR BI-RADS breast composition Category b). Right: There are no significant masses, abnormal calcifications, or other abnormalities. Left: Asymmetry lateral breast middle to posterior depth on CC view. No suspicious calcifications or other abnormal findings. MM/MM tomosynthesis screening BI IMPRESSION: Additional imaging is recommended ASSESSMENT: BI-RADS BI-RADS 0 - Incomplete: Needs additional Imaging. RECOMMENDATION: 1. Additional views of the left breast 2. Targeted ultrasound if warranted after review of the additional views. 3. Radiology department staff will contact the patient for additional imaging. Additional Imaging required This examination should not preclude the clinical evaluation of a suspicious palpable abnormality. This patient's information was entered into a reminder system with a target due date for their next mammogram. Electronically signed by: Elizabeth Olmstead DO 07/14/2024 09:25 AM EDT
== END 2024-07-01 08:43 | disposition home or self-care (01) ==
LOC: HO.MAMMO 08:42
PROVIDERS: PCP Internal Medicine; Visit Provider Internal Medicine
DX: Z12.31 Encounter for screening mammogram for malignant neoplasm of breast (principal)
CPT/HCPCS: 77063; 77067

== ENCOUNTER → 2024-07-01 09:30 | Outpatient (BNV) | payer MEDICARE, MEDICAID, SELFPAY | PROVIDERS: PCP Internal Medicine; Visit Provider Internal Medicine | DX: Z12.31 Encounter for screening mammogram for malignant neoplasm of breast (principal) | CPT/HCPCS: 77063; 77067 ==

== ENCOUNTER 2024-09-15 11:58 | Outpatient (REF) | payer MEDICARE, MEDICAID, SELFPAY ==
--- NOTE | ~2024-09-15 | US_ITS ---
EXAMINATION: MM DIAGNOSTIC DIGITAL BREAST TOMOSYNTHESIS, LEFT Limited left breast ultrasound. CLINICAL INFORMATION: Call back from screening for asymmetry in the lateral left breast on CC view posterior depth. COMPARISON: Mammography: Comparison is made with available prior examinations. TECHNIQUE: Digital breast tomosynthesis is performed in both the craniocaudal and mediolateral oblique views along with computer-aided detection (CAD). Synthesized 2D images are generated from the tomosynthesis. Limited left breast ultrasound. FINDINGS: The breasts are extremely dense, which lowers the sensitivity of mammography (ACR BI-RADS breast composition Category d). Asymmetry lateral left breast posterior depth on CC view partially effaces on additional imaging projections. No suspicious calcifications or other abnormal findings. Targeted left breast ultrasound scanning from 1-5 o'clock demonstrates normal fibroglandular breast tissue. There is an incidental hypoechoic oval parallel circumscribed solid mass at 2:00 6 cm from nipple measuring 5 x 3 x 6 mm. US/US breast LT limited mamm only IMPRESSION: Asymmetry lateral left breast posterior depth on CC view. Recommend six-month follow-up mammography for further evaluation of stability. Oval solid mass at 2:00 6 cm from the nipple on ultrasound. Recommend 6 month follow-up left breast ultrasound for further evaluation of stability. ASSESSMENT: BI-RADS BI-RADS 3 - Probably benign finding(s) - 6 month follow-up suggested RECOMMENDATION: 1 year F/U (accession [id number]), 6 Month F/U (accession [id number]) Results were provided to the patient at time of visit by the technologist. This patient's information was entered into a reminder system with a target due date for their next mammogram. Electronically signed by: Elizabeth Olmstead DO 09/15/2024 02:01 PM LOVE
== END 2024-09-15 11:59 | disposition home or self-care (01) ==
LOC: HO.MAMMO 11:58
PROVIDERS: PCP Internal Medicine; Visit Provider Obstetrics & Gynecology
DX: N64.89 Other specified disorders of breast (principal)
CPT/HCPCS: 76642; 77061; 77065

== ENCOUNTER → 2024-09-15 13:00 | Outpatient (BNV) | payer MEDICARE, MEDICAID, SELFPAY | PROVIDERS: PCP Internal Medicine; Visit Provider Internal Medicine | DX: N63.25 Unspecified lump in the left breast, overlapping quadrants (principal) | CPT/HCPCS: 76642; 77065; G0279 ==

== ENCOUNTER 2024-11-25 12:56 | Outpatient (AMB) | payer MEDICARE, MEDICAID, SELFPAY ==
--- NOTE | 2024-11-25 13:03 | MHC.OFFVIS ---
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 She is doing well with no information systems analyst concerns. Currently never sexually active. Denies any vaginal dryness or irritation. Attempting to eat a healthy diet with calcium and vitamin D and stays active with exercise. Is looking for a new job, lives with her mom. Last pap smear; 10/2023 at [facility] [place]. Last mammogram; [id number] follow up for ovoid mass. [place]oGard is planned. Denies any family history of breast, ovarian or colon cancer. [facility] Medical History (Updated 11/25/24 @ 13:45 by Georgina Barlow CNM) Hot flashes PMB (postmenopausal bleeding) Breast cyst Left knee pain Left foot pain Allergic rhinitis due to allergen Sinus tachycardia B12 deficiency Hypovitaminosis D Pure hypercholesterolemia Transaminitis History of intellectual disability History of vitamin D deficiency Hx of iron deficiency anemia Hx of supraventricular tachycardia Surgical History (Updated 11/25/24 @ 13:14 by ALYSSA Aguilar) History of hysteroscopy No pertinent past surgical history Family History Father Cancer Mother Healthy adult Sister Healthy adult Social History Household Members: Family Household Members Other:: mom Housing: House Alcohol intake: never Patient Tobacco Use Status: Never used Tobacco e-Cigarette/Vaping Use: Never Used Second Hand Smoke Exposure: No service: No Current occupational status: employed Current occupation: [employer] Current occupational exposures/hazards: No Cognitive needs: No Hearing needs: No Vision needs: No Female Reproductive History Menstrual Total pregnancies: 0 Date of last pap smear: 11/12/23 (neg pap and hpv) Date of Mammogram: 07/01/24 (Birad 0 ) History of abnormal mammogram: Yes (09/15/24 Birad 3) Review of Systems Const All systems reviewed & are unremarkable except as noted in HPI and below Reports as per HPI Eyes Reports no additional complaints ENT Reports no additional complaints Card Reports no additional complaints Resp Reports no additional complaints GI Reports as per HPI and Reports no additional complaints Reports as per HPI Musc Reports no additional complaints Skin/Breast Reports as per HPI Neuro Reports no additional complaints Psych Reports no additional complaints Endo Reports no additional complaints Pranay/Lymph Reports no additional complaints Aller/Immun Reports no additional complaints Physical Exam Vital Signs: Last Vital Signs BP 114/72 11/25/24 13:05 BMI result Body Mass Index 19.5 Const General: cooperative, healthy appearing, no acute distress, well developed and alert Orientation/consciousness: patient oriented x3 HEENT Head: Yes normal to inspection Eyes General: appearance normal, both eyes and all related structures Neck Neck: Yes normal visual inspection Thyroid: Thyroid normal Chest Chest palpation & inspection: normal inspection of the chest and other (no puckering, dimpling, peau de orange, retraction, discharge, masses) Breast/axilla inspection: normal inspection of the breasts Breast/axilla palpation: normal palpation of the breasts Resp Effort & Inspection: normal respiratory effort GI Inspection: Yes normal to inspection Palpation (GI): Soft to palpation Rectal Exam - Female: deferred General: Yes bladder normal to palpation External Female Exam: normal external appearance and normal appearance of the urethra Speculum Exam - Vagina: normal appearance of the vagina, normal palpation, normal vaginal discharge and vagina atrophic (Moderate to severe atrophy) Speculum Exam - Cervix: normal appearance of the cervix and normal palpation Bimanual exam- vagina & uterus: normal bimanual exam, normal palpation, uterine size normal, bladder normal to palpation, normal palpation and non-tender Bimanual Exam- Adnexa, other: no masses Skin General skin exam: no rashes or lesions noted Rashes: no rashes Neuro General: patient oriented x3 Cognition (Neuro): normal cognition Extrem General: Yes normal to inspection Psych Attitude: cooperative Thought process: Normal thought process present Assessment & Plan Assessment & Plan (1) Well woman exam with routine gynecological exam: Code(s): Z01.419 - Encounter for gynecological examination (general) (routine) without abnormal findings Category: Medical Plan Discussed: Current recommendations for pap smears per ASCCP guidelines. Breast awareness, periodic self breast exams and yearly mammogram. Has follow up six-month recheck in March. Maintain a healthy lifestyle, well balanced diet including Calcium 1,200 mg and Vitamin D 600 IU daily, and routine exercise. Contact the office with any postmenopausal bleeding. Patient verbalizes understanding and agrees to the plan of care. She was given opportunity to ask questions and all questions were answered to the best of my ability. RTO in 1 year for annual information systems analyst exam. This note is constructed using voice recognition software. While every effort has been made to ensure accuracy, motor coach driver errors may have been included. Coding Level of Care Code Est Pt Prev Care 40-64y(76302) Diagnoses Well woman exam with routine gynecological exam Z01.419
[2024-11-25 13:05] VITALS: BP 114/72; BMI 19.5
== END 2024-11-25 14:12 | disposition home or self-care (01) ==
PROVIDERS: PCP Internal Medicine; Visit Provider Advanced Practice Midwife
DX: Z01.419 Encounter for gynecological examination (general) (routine) without abnormal findings (principal)
CPT/HCPCS: G0101

== ENCOUNTER → 2024-11-25 12:56 | Outpatient (BNVA) | payer MEDICARE, MEDICAID, SELFPAY | PROVIDERS: PCP Internal Medicine; Visit Provider Advanced Practice Midwife | DX: Z01.419 Encounter for gynecological examination (general) (routine) without abnormal findings (principal) | CPT/HCPCS: G0101 ==

== ENCOUNTER 2025-03-12 07:13 | Outpatient (REF) | payer MEDICARE, MEDICAID, SELFPAY ==
[2025-03-12 07:32] LABS: MANUAL DIFF FLAG NO
[2025-03-12 08:00] LABS: Basophils Percent Auto 0.9 % (0-2); Eosinophils Absolute Auto 0.1 X10*3/uL (0.0-0.4); Eosinophils Percent Auto 1.5 % (0-4); Hematocrit 39.9 % (37.0-47.0); Hemoglobin 13.3 g/dl (12.0-16.0); Lymphocytes Absolute Auto 1.6 X10*3/uL (1.2-4.9); Lymphocytes Percent Auto 47.1 % (20-40); Mean Corpuscular HGB Conc 33.3 g/dl (31.0-35.0); Mean Corpuscular Hemoglobin 28.7 pg (27.0-33.0); Mean Platelet Volume 10.2 fL (9.4-12.3); Monocytes Absolute Auto 0.3 X10*3/uL (0.1-1.2); Monocytes Percent Auto 8.2 % (2-11); Neutrophils Absolute Auto 1.4 x10*3/uL (2.0-8.3); Neutrophils Percent Auto 42.3 % (45-73); Platelet Count 199 X10*3/uL (160-400); Red Blood Count 4.64 X10*6/uL (4.20-5.50); Red Cell Distribution Width 12.6 % (11.0-16.0); White Blood Count 3.3 X10*3/uL (4.8-10.8)
[2025-03-12 08:34] LABS: Iron 79 mcg/dL (30-160); Percent Iron Saturation 27 % (15-50); Total Iron Binding Capacity 293 mcg/dL (228-428); Unsaturated Iron Binding 214 ug/dL
[2025-03-12 08:51] LABS: Vitamin D 25-OH Total 15.1 ng/mL (>30)
[2025-03-12 09:06] LABS: Folate 13.4 ng/mL (> or = 4.0); Vitamin B12 438 pg/mL (200-900)
== END 2025-03-12 07:14 | disposition home or self-care (01) ==
LOC: HO.LAB 07:13
PROVIDERS: PCP Internal Medicine; Visit Provider Internal Medicine
DX: D64.9 Anemia, unspecified (principal); E53.8 Deficiency of other specified B group vitamins; E55.9 Vitamin D deficiency, unspecified
CPT/HCPCS: 36415; 82306; 82607; 82746; 83540; 85025

== ENCOUNTER 2025-03-16 08:21 | Outpatient (REF) | payer MEDICARE, MEDICAID, SELFPAY ==
--- NOTE | ~2025-03-16 | US_ITS ---
EXAMINATION: US DIAGNOSTIC ULTRASOUND BREAST, LEFT CLINICAL INFORMATION: 6 month follow-up left breast ultrasound and left breast mammogram was recommended previously the patient refused to have a mammogram today.. COMPARISON: Comparison is made with relevant prior imaging. TECHNIQUE: Ultrasound of the breast is performed with real-time burnham scale imaging and color Doppler. FINDINGS: Targeted color Doppler ultrasound scanning in the left breast 2:00 6 cm from the nipple demonstrates a hypoechoic oval circumscribed solid mass versus complicated cyst again measuring 6 by a 6 x 4 mm not significantly changed from prior ultrasound. The previously seen asymmetry in the superior left breast on mammography could not be assessed today. Patient declined interfuse mammography. Results are discussed with the patient at time of visit. US/US breast LT limited mamm only IMPRESSION: Hypoechoic oval circumscribed solid mass versus complicated cyst in the left breast at 2:00 6 cm from the nipple not significantly changed from prior ultrasound 6 months ago. Probably benign. Recommend 6 month follow-up ultrasound for further evaluation of stability. ASSESSMENT: BI-RADS 3: Probably Benign RECOMMENDATION: Diagnostic mammography in 6 months. This patient's information was entered into a reminder system with a target due date for their next mammogram. Electronically signed by: Elizabeth Olmstead DO 03/16/2025 12:37 PM EDT
== END 2025-03-16 08:22 | disposition home or self-care (01) ==
LOC: HO.MAMMO 08:21
PROVIDERS: PCP Internal Medicine; Visit Provider Internal Medicine
DX: N63.21 Unspecified lump in the left breast, upper outer quadrant (principal)
CPT/HCPCS: 76642

== ENCOUNTER → 2025-03-16 09:30 | Outpatient (BNV) | payer MEDICARE, MEDICAID, SELFPAY | PROVIDERS: PCP Internal Medicine; Visit Provider Internal Medicine | DX: N64.89 Other specified disorders of breast (principal) | CPT/HCPCS: 76642 ==

== ENCOUNTER 2025-05-28 07:43 | Outpatient (AMB) | payer MEDICARE, MEDICAID, SELFPAY ==
[2025-05-28 07:44] VITALS: BP 104/62; PULSE 79; O2SAT 98; BMI 18.7
--- NOTE | 2025-05-28 07:44 | MHC.PC.OV ---
Vital Signs 05/28/25 07:44 Height 5 ft 8 in Weight 123 lb BMI 18.7 BP 104/62 Blood Pressure Location Lt brachial Position Sitting Pulse 79 Pulse Source Pulse Oximeter Pulse Oximetry (%) 98 Oxygen Delivery Method Room Air Intake Visit Reasons: [facility] 810 ABD pain Intake Note: Patient was never seen at [facility]. She went but was never seen. They kept telling her to wait a minute and so she left went home and took a tylenol. Allergies No Known Allergies (No Known Allergies*) Allergy (Verified 05/28/25 07:44) Tobacco use date assessed: 05/28/25 Dental Screening Dental Screen Date: 05/28/25 Did you have a dental visit in the last 12 months?: Yes Did you have a dental problem in the last 6 months where you did not have access to dental care?: No Was dental information given to patient?: Patient has dentist HPI HPI Comments History of Present Illness Details 50 y/o Female patient who presents to the clinic today for the same day appointment. Pt c/o Supra-pubic lower abdominal pain since last week. Describes the pain as Sharp and rates it at 4/10 on pain scale. She has been going to the Gym and has been lifting weights and doing Abdominal thrust. She believes the pain started immediately after she started doing exercises. Report staking Acetaminophen once with no relief. Denies nausea, vomiting, fevers, chills. Denies Constipation or diarrhea. Denies urinary or vaginal symptoms. [facility] Medical History (Updated 05/28/25 @ 08:20 by May Rodriguez NP) Abdominal pain Hot flashes PMB (postmenopausal bleeding) Breast cyst Left knee pain Left foot pain Allergic rhinitis due to allergen Sinus tachycardia B12 deficiency Hypovitaminosis D Pure hypercholesterolemia Transaminitis History of intellectual disability History of vitamin D deficiency Hx of iron deficiency anemia Hx of supraventricular tachycardia Surgical History (Updated 11/25/24 @ 13:14 by ALYSSA Aguilar) History of hysteroscopy No pertinent past surgical history Family History Father Cancer Mother Healthy adult Sister Healthy adult Social History Household Members: Family Household Members Other:: mom Housing: House Alcohol intake: never Patient Tobacco Use Status: Never used Tobacco Tobacco use type: Cigarette e-Cigarette/Vaping Use: Never Used Second Hand Smoke Exposure: No service: No Current occupational status: employed Current occupation: [employer] Current occupational exposures/hazards: No Cognitive needs: No Hearing needs: No Vision needs: No Questionnaire PHQ-9 Over the last 2 weeks, how often have you been bothered by any of the following problems? 1. Little interest or pleasure in doing things: not at all 2. Feeling down, depressed, or hopeless: not at all 3. Trouble falling or staying asleep, or sleeping too much: not at all 4. Feeling tired or having little energy: not at all 5. Poor appetite or overeating: not at all 6. Feeling bad about yourself - or that you are a failure or have let yourself or your family down: not at all 7. Trouble concentrating on things, such as reading the newspaper or watching television: not at all 8. Moving or speaking so slowly that other people could have noticed. Or the opposite - being so fidgety or restless that you have been moving around a lot more than usual: not at all 9. Thoughts that you would be better off or of hurting yourself in some way: not at all Total score: 0 Depression Screening Interpretation: Negative Depression Screening Done: Yes Source: Developed by Drs. He Lilly, Stephy Hernandez, Saúl Ni and colleagues, with an educational dodie from [employer]. Thrive Questionnaire Date Thrive assessed: 05/28/25 I am a: Patient What is your living situation today?: I have a steady place to live Within the past 12 months, did the food you bought not last and you didn't have the money to get more?: Never true Within the past 12 months, did you worry whether your food would run out before you got money to buy more?: Never true Do you have trouble paying for medicines?: No Do you have trouble getting transportation to medical appointments?: No Do you have trouble paying your heating and electricity bill?: No Do you have trouble taking care of your child, family member or friend?: No Do you have trouble with day-to-day activities such as bathing, preparing meals, shopping, managing finances, etc.?: No Are you currently unemployed and looking for a job?: Yes Are you interested in more education?: No Please select the resources that you would like help with: None Currently or been in a relationship where the following occur: No concerns reported THRIVE Score: 0 AUDIT C Alcohol Use Questionnaire (AUDIT-C) 1. How often do you have a drink containing alcohol?: Never 3. How often do you have six or more drinks on one occasion?: Never Total Score: 0 ALBERT-7 AMB Questionnaire ABLERT-7 Date ALBERT - 7 assessed: 05/28/25 Feeling nervous, anxious, or on edge: 0 = Not at all Not being able to stop or control worryin = Not at all Worrying too much about different things: 0 = Not at all Trouble relaxin = Not at all Being so restless that it is hard to sit still: 0 = Not at all Becoming easily annoyed or irritable: 0 = Not at all Feeling afraid as if something awful might happen: 0 = Not at all Total ALBERT-7 score (0-4 normal; 5-9 mild; 10-14 moderate; 15-21 severe): 0 Source: Developed by Drs. He Lilly, Stephy Hernandez, Saúl Ni and colleagues, with an educational dodie from [employer]. Review of Systems Const All systems reviewed & are unremarkable except as noted in HPI and below Physical exam (Primary Care) Vital Signs: Last Vital Signs Pulse 79 05/28/25 07:44 BP 104/62 05/28/25 07:44 Pulse Ox 98 05/28/25 07:44 Oxygen Delivery Method Room Air 05/28/25 07:44 BMI result Body Mass Index 18.7 Tobacco/Smoking Status: Tobacco use Status Tobacco use date assessed 05/28/25 05/28/25 07:50 Patient Tobacco Use Status Never used Tobacco 05/28/25 07:50 Tobacco use type Cigarette 05/28/25 07:50 e-Cigarette/Vaping Use Never Used 05/28/25 07:50 PHQ-9: PHQ-9 Score PHQ-9: Total score 0 05/28/25 07:50 Depression Screening Interpretation: Negative Thrive Assessment: Date of Thrive Assessment Date Thrive assessed 05/28/25 05/28/25 07:50 Currently or been in a relationship where the following occur: No concerns reported Const General: no acute distress Nutritional Appearance: thin Orientation/consciousness: patient oriented x3 Resp Effort & Inspection: normal respiratory effort Auscultation: clear to auscultation bilaterally Cardio Heart sounds: S1 normal heart sound present and S2 normal heart sound present GI Inspection: Yes normal to inspection Palpation (GI): Soft to palpation, not firm, Tenderness to palpation present (GI) suprapubicly, no guarding, not rigid and No hepatosplenomegaly present Percussion: Yes normal to percussion Auscultation: normal bowel sounds Rectal Exam - Female: deferred Neuro General: patient oriented x3 Coding Level of Care Code Est Pt Level 4 (42929) Diagnoses Abdominal pain R10.9 Time Spent (min) 20 Assessment & Plan Assessment & Plan (1) Abdominal pain: Code(s): R10.9 - Unspecified abdominal pain Category: Medical Plan: Abdominal muscle Strain due to Abdominal exercises. Ordered Naproxen and muscle relaxants for pain relief. Advised Pt if not better to come to the walk in [place] for f/u. Medications: New cyclobenzaprine 5 mg PO BEDTIME 14 tabs 0RF R10.9 - Unspecified abdominal pain naproxen 500 mg PO BID 20 tabs 0RF R10.9 - Unspecified abdominal pain
== END 2025-05-28 08:07 | disposition home or self-care (01) ==
LOC: HO.HMCH 07:44
PROVIDERS: PCP Internal Medicine; Visit Provider Nurse Practitioner Family
DX: R10.9 Unspecified abdominal pain (principal)

== ENCOUNTER → 2025-05-28 07:43 | Outpatient (BNVA) | payer MEDICARE, MEDICAID, SELFPAY | PROVIDERS: PCP Internal Medicine; Visit Provider Nurse Practitioner Family | DX: R10.9 Unspecified abdominal pain (principal) | CPT/HCPCS: 99212 ==

== ENCOUNTER 2025-07-27 12:25 | Outpatient (AMB) | payer MEDICARE, MEDICAID, SELFPAY ==
[2025-07-27 12:41] VITALS: BP 104/66; PULSE 97; TEMP 36.1; O2SAT 99; BMI 19.4
--- NOTE | 2025-07-27 12:44 | A.OFFVIS_ITS ---
Intake Vital Signs 07/27/25 12:41 07/27/25 12:49 Height 5 ft 8 in Weight 127 lb 8 oz BMI 19.4 19.4 BP 104/66 Blood Pressure Location Lt brachial Position Sitting Pulse 97 Pulse Source Pulse Oximeter Temp 97.0 F Temp Source Temporal Artery Scan Pulse Oximetry (%) 99 Oxygen Delivery Method Room Air Intake Visit Reasons: AWV Allergies No Known Allergies (No Known Allergies*) Allergy (Verified 07/27/25 12:44) HPI HPI Comments History of Present Illness Details The patient is a 50-year-old female presenting for a Medicare wellness checkup visit. She reports no emotional problems in the past four weeks and denies any limitation in social activities due to physical or emotional health. She denies experiencing any pain currently, although she had pain in an unspecified location during her last visit, which was managed with medication. The patient confirms having adequate social support and engages in moderate physical activity with friends. She is independent in personal care activities but receives assistance from her mother for meal preparation and housework. She denies any dizziness, sexual problems, or issues with eating, and reports no history of falls. She does not smoke or consume alcohol and exercises regularly on . The patient has no current medications and previously took vitamin D, which was discontinued. She expresses confidence in managing her health and has a history of recent lab work in May, with no abnormalities reported. She has a scheduled appointment with a profile saw setup operator and a mammogram planned for September. She has not received the flu vaccine and is considering the shingles vaccine. [place] of care was filled and handed to patient. FORMERLY [facility] Medical History Abdominal pain Hot flashes PMB (postmenopausal bleeding) Breast cyst Left knee pain Left foot pain Allergic rhinitis due to allergen Sinus tachycardia B12 deficiency Hypovitaminosis D Pure hypercholesterolemia Transaminitis History of intellectual disability History of vitamin D deficiency Hx of iron deficiency anemia Hx of supraventricular tachycardia Surgical History History of hysteroscopy No pertinent past surgical history Family History Father Cancer Mother Healthy adult Sister Healthy adult Social History Household Members: Family Household Members Other:: mom Housing: House Alcohol intake: never Patient Tobacco Use Status: Never used Tobacco Tobacco use type: Cigarette e-Cigarette/Vaping Use: Never Used Second Hand Smoke Exposure: No service: No Current occupational status: employed Current occupation: [employer] Current occupational exposures/hazards: No Cognitive needs: No Hearing needs: No Vision needs: No Questionnaire Medicare Wellness Checkup What gender do you identify with?: female During the past 4 weeks, how much have you been bothered by emotional problems such as feeling anxious, depressed, irritable, sad or downhearted, and blue?: not at all During the past 4 weeks, has your physical & emotional health limited your social activities with family, friends, neighbors, or groups?: not at all During the past 4 weeks, how much bodily pain have you generally had?: no pain During the past 4 weeks, was someone available to help you if you needed & wanted help?: yes, some During the past 4 weeks, what was the hardest physical activity you could do for at least 2 minutes?: light Can you get to places out of walking distance without help? (For eg., can you travel alone on buses, taxis or drive your car?): Yes Can you go shopping for groceries or clothes without someone's help?: Yes Can you prepare your own meals?: No Can you do your housework without help?: No Because of any health problems, do you need the help of another person with your personal care needs such as eating, bathing, dressing or getting around the house?: Yes Can you handle your own money without help?: No During the past 4 weeks, how would you rate your health in general?: excellent During the past 4 weeks how have things been going for you?: very well; could hardly better Are you having difficulties driving your car?: not applicable, I don't use a car Do you always fasten your seat belt when you are in a car?: yes, usually During past 4 weeks, have you been bothered by the following: never: Falling or dizzy when standing up, Sexual problems?, Trouble eating well?, Teeth or denture problems? and Problems using the telephone? and sometimes: Tiredness or fatigue? Have you fallen 2 or more times in the past year?: No Are you afraid of falling?: Yes Are you a smoker?: no During the past 4 weeks, how many drinks of wine, beer, or other alcoholic beverages did you have?: no alcohol at all Do you exercise for about 20 minutes 3 or more times a week?: yes, all the time Have you been given information to help with the following?: no: Hazards in your house that might hurt you? and no: Keeping track of your medications? How often do you have trouble taking medicines the way you have been told to take them?: I do not have to take medicine What is your race?: Black or Mini Mental State Exam (MMSE) Orientation What is the (year) (season) (date) (day) (month)?: year, season, date, day and month Registration Name of 3 unrelated objects clearly and slowly, then ask patient to repeat all 3 of them. (1st repeat determines score. Make sure they can repeat all three): object 3 Attention & Calculation (CHOOSE ONE) Ask pt to begin with 100 & count backward by 7. Stop after 5 repeats. If pt cannot ask them to spell the word WORLD backward.: 93 Spell WORLD backwards (DLROW): 0 letters Recall Ask patient to repeat the 3 items from question #3.: object 3 Language Show patient a wristwatch & ask what it is. Repeat for pencil.: watch and pencil Ask the patient to repeat the phrase 'No ifs, ands, or buts' after you.: incorrect Ask the patient to 'take a piece of paper with their right hand' 'fold paper in half' 'place paper on floor': fold paper in half Print the sentence 'CLOSE YOUR EYES' on a piece. If patient actually closes eyes then score.: followed written direction (Cannot read. Taking reading classes. ) Give patient a blank piece of paper & ask to write a sentence. Score if it contains a noun & verb.: sentence contains subject and verb (Unable to complete it.) Ask patient to copy figure of intersecting pentagons exactly. Score if all 10 angles & 2 intersects are included.: all 10 angles present & 2 are intersected Score Score: 14 Activity of Daily Living Bathing - sponge bath, tub bath or shower: receives no assistance (gets in/out by self, if usual bathing means Dressing - getting clothes from closets & drawers, including inner/outer garments & fasteners.: gets clothes & gets completely dressed without help Toileting - going to the 'toilet room' for urine/bowel elimination & cleaning self/arranging clothes: goes to toilet room, cleans self, arranges clothes without help Transfer: moves in & out of bed and chair without help (may use support object) Continence: controls urination/bowel movements completely by self Feeding: feeds self without help Total Score: 0 Information obtained from: patient Using telephone: independent Traveling: independent Shopping: independent Preparing meals: independent Housework: independent Taking medicine: independent Managing money: independent PHQ-9 Over the last 2 weeks, how often have you been bothered by any of the following problems? 1. Little interest or pleasure in doing things: not at all 2. Feeling down, depressed, or hopeless: not at all 3. Trouble falling or staying asleep, or sleeping too much: not at all 4. Feeling tired or having little energy: several days 5. Poor appetite or overeating: not at all 6. Feeling bad about yourself - or that you are a failure or have let yourself or your family down: not at all 7. Trouble concentrating on things, such as reading the newspaper or watching television: not at all 8. Moving or speaking so slowly that other people could have noticed. Or the opposite - being so fidgety or restless that you have been moving around a lot more than usual: not at all 9. Thoughts that you would be better off or of hurting yourself in some way: not at all Total score: 1 Source: Developed by Drs. He Lilly, Stephy Hernandez, Saúl Ni and colleagues, with an educational dodie from [employer]. Review of Systems Const Details: Positives besides what was mentioned in HPI are in BOLD Constitutional: No Weight Change, No Fever, No Chills, No Night Sweats, No Fatigue, No Malaise ENT/Mouth: No Hearing Changes, No Ear Pain, No Nasal Congestion, No Sinus Pain, No Hoarseness, No sore throat, No Rhinorrhea, No Swallowing Difficulty Eyes: No Eye Pain, No Swelling, No Redness, No Foreign Body, No Discharge, No Vision Changes Cardiovascular: No Chest Pain, No SOB, No PND, No Dyspnea on Exertion, No Orthopnea, No Claudication, No Edema, No Palpitations Respiratory: No Cough, No Sputum, No Wheezing, No Smoke Exposure, No Dyspnea Gastrointestinal: No Nausea, No Vomiting, No Diarrhea, No Constipation, No Pain, No Heartburn, No Anorexia, No Dysphagia, No Hematochezia, No Melena, No Flatulence, No Jaundice Genitourinary: No Dysmenorrhea, No DUB, No Dyspareunia, No Dysuria, No Urinary Frequency, No Hematuria, No Urinary Incontinence, No Urgency, No Flank Pain, No Urinary Flow Changes, No Hesitancy Musculoskeletal: No Arthralgias, No Myalgias, No Joint Swelling, No Joint Stiffness, No Back Pain, No Neck Pain, No Injury History Skin: No Skin Lesions, No Pruritis, No Hair Changes, No Breast/Skin Changes, No Nipple Discharge Neuro: No Weakness, No Numbness, No Paresthesias, No Loss of Consciousness, No Syncope, No Dizziness, No Headache, No Coordination Changes, No Recent Falls Psych: No Anxiety/Panic, No Depression, No Insomnia, No Personality Changes, No Delusions, No Rumination, No SI/HI/AH/VH, No Social Issues, No Memory Changes, No Violence/Abuse Hx., No Eating Concerns Heme/Lymph: No Bruising, No Bleeding, No Transfusions History, No Lymph adenopathy Endocrine: No Polyuria, No Polydipsia, No Temperature Intolerance Physical Exam Vital Signs: Last Vital Signs Temp 97.0 F 07/27/25 12:41 Pulse 97 07/27/25 12:41 BP 104/66 07/27/25 12:41 Pulse Ox 99 07/27/25 12:41 Oxygen Delivery Method Room Air 07/27/25 12:41 BMI result Body Mass Index 19.4 Const Other: Pertinent findings are in BOLD GENERAL APPEARANCE NAD, activity normal for age, well developed/ well nourished, no cyanosis, pallor, or diaphoresis. EYES lids/conjunctiva normal. EARS/NOSE/THROAT Mucous membranes moist, nares normal, lips/teeth normal uvula midline without oral pharyngeal erythema, exudate or swelling TMs normal bilaterally. No lymphangitis/lymphedema. HEAD/NECK normocephalic atraumatic, no facial trauma, neck is supple. RESPIRATORY respiratory effort normal, speaks in full sentences, no tripod position, no accessory muscle use. Lungs clear to auscultation without rhonchi, wheezes, rales CARDIAC Regular rate and rhythm, no edema. ABDOMINAL Soft, ND/NT. No evidence of fluid wave. No pulsatile masses on exam, rebound tenderness, Smith sign or pain over Mcburney's point. MUSCLES/EXTREMITIES No abnormal range of motion, no swelling. SKIN Warm, pink and dry. No rashes, dermatoses, petechiae or lesions. NEUROLOGICAL Speech is clear and appropriate. Normal level of consciousness. Gait and coordination are normal. 5/5 strength in all extremities. PSYCH Normal mood and affect. Judgement/competence is appropriate Assessment & Plan Assessment & Plan (1) Healthcare maintenance: Code(s): Z00.00 - Encounter for general adult medical examination without abnormal findings Plan: CBC, CMP, Lipid panel, A1C, TSH w T4, vit D. done this year. Shingles 2 doses when >50 yo. Recommended from Retail pharmacy. COVID: two doses. Completed. Tdap: Done in 2024- Pneumococcal: 19-64. Next visit. Flu vaccine: Declined. Might get it from Retail pharmacy. Colonoscopy: 45-75. Cologuard ordered today. AAA: 65 -75, NI. CT lun - 80. NI. HPV: Principal Engineer done this year. HIV: Next visit. HBV: Next visit. HCV: Next visit. Dexa: NI. Mammogram: Done in 03/2025. Repeat 09/2025. (2) Cerumen impaction: Code(s): H61.20 - Impacted cerumen, unspecified ear Plan: - Recommended use of Debrox ear drops and scheduled ear cleaning appointment. Plan During the visit, we discussed the importance of completing the colon cancer screening with a stool test and obtaining the shingles vaccination from a pharmacy. The patient was advised on the use of Debrox ear drops to manage earwax accumulation and scheduled an appointment for ear cleaning. Orders: Referrals Cologuard Test Z12.11 - Encounter for screening for malignant neoplasm of colon, Z12.12 - Encounter for screening for malignant neoplasm of rectum Medications: New carbamide peroxide 6.5% (Debrox) 5 drps otic (ear) left DAILY 15 mL 0RF 4 days Quality Reporting (2019) Depression/Bipolar (159/160/161/177) PHQ-9: Total score: 1 Coding Level of Care Code Medicare Subsequent (G0439) Diagnoses Healthcare maintenance Z00.00 Cerumen impaction H61.20 Time Spent (min) 40 Advance Care Planning Did not discuss due to Cultural/Spiritual beliefs: Yes
[2025-07-27 12:49] VITALS: BMI 19.4
== END 2025-07-27 13:32 | disposition home or self-care (01) ==
LOC: HO.HMCH 12:25
PROVIDERS: PCP Internal Medicine; Visit Provider Internal Medicine
DX: Z00.00 Encounter for general adult medical examination without abnormal findings (principal); H61.20 Impacted cerumen, unspecified ear

== ENCOUNTER 2025-08-03 08:43 | Outpatient (AMB) | payer MEDICARE, MEDICAID, SELFPAY ==
--- NOTE | 2025-08-03 09:01 | MHC.PC.OV ---
Vital Signs 08/03/25 09:02 Height 5 ft 8 in Weight 125 lb 8 oz BMI 19.1 BP 130/70 Blood Pressure Location Lt brachial Position Sitting Pulse 71 Pulse Source Pulse Oximeter Temp 97.3 F Temp Source Temporal Artery Scan Pulse Oximetry (%) 98 Oxygen Delivery Method Room Air Intake Visit Reasons: ear flush Intake Note: Patient is here to follow up on Ear flush. Garment Manufacturer Required: No Ore Washer: Not Required per policy Accompanied by: Self / Same As Patient Allergies No Known Allergies (No Known Allergies*) Allergy (Verified 08/03/25 09:02) Tobacco use date assessed: 08/03/25 Dental Screening Dental Screen Date: 05/28/25 HPI HPI Comments History of Present Illness Details 50 yo F presenting for scheduled ear flush. I advised the patient to use Debrodex to help with the cerumen impaciton but she forgot to use it. Her ears were clogged fully. After ear flush her ears looks better but they did not fully open. She had mild dizziness after the procedure which improved with rest. FOR[facility]LY [facility], [facility] Medical History (Updated 08/03/25 @ 09:55 by Medardo Lerma MD) Cerumen impaction Abdominal pain Hot flashes PMB (postmenopausal bleeding) Breast cyst Left knee pain Left foot pain Allergic rhinitis due to allergen Sinus tachycardia B12 deficiency Hypovitaminosis D Pure hypercholesterolemia Transaminitis History of intellectual disability History of vitamin D deficiency Hx of iron deficiency anemia Hx of supraventricular tachycardia Surgical History History of hysteroscopy No pertinent past surgical history Family History Father Cancer Mother Healthy adult Sister Healthy adult Social History Household Members: Family Household Members Other:: mom Housing: House Alcohol intake: never Patient Tobacco Use Status: Never used Tobacco Tobacco use type: Cigarette e-Cigarette/Vaping Use: Never Used Second Hand Smoke Exposure: No service: No Current occupational status: employed Current occupation: [employer] Current occupational exposures/hazards: No Cognitive needs: No Hearing needs: No Vision needs: No Questionnaire Thrive Questionnaire Date Thrive assessed: 05/28/25 I am a: Patient What is your living situation today?: I have a steady place to live Within the past 12 months, did the food you bought not last and you didn't have the money to get more?: Never true Within the past 12 months, did you worry whether your food would run out before you got money to buy more?: Never true Do you have trouble paying for medicines?: No Do you have trouble getting transportation to medical appointments?: No Do you have trouble paying your heating and electricity bill?: No Do you have trouble taking care of your child, family member or friend?: No Do you have trouble with day-to-day activities such as bathing, preparing meals, shopping, managing finances, etc.?: No Are you currently unemployed and looking for a job?: Yes Are you interested in more education?: No Please select the resources that you would like help with: None Currently or been in a relationship where the following occur: No concerns reported THRIVE Score: 0 ALBERT-7 AMB Questionnaire ALBERT-7 Date ALBERT - 7 assessed: 05/28/25 Source: Developed by Drs. He Lilly, Stephy Hernandez, Saúl Ni and colleagues, with an educational dodie from [employer]. Physical exam (Primary Care) Vital Signs: Last Vital Signs Temp 97.3 F 08/03/25 09:02 Pulse 71 08/03/25 09:02 BP 130/70 08/03/25 09:02 Pulse Ox 98 08/03/25 09:02 Oxygen Delivery Method Room Air 08/03/25 09:02 BMI result Body Mass Index 19.1 Tobacco/Smoking Status: Tobacco use Status Tobacco use date assessed 08/03/25 08/03/25 09:07 Patient Tobacco Use Status Never used Tobacco 08/03/25 09:07 Tobacco use type Cigarette 08/03/25 09:07 e-Cigarette/Vaping Use Never Used 08/03/25 09:07 Thrive Assessment: Date of Thrive Assessment Date Thrive assessed 05/28/25 08/03/25 09:07 Currently or been in a relationship where the following occur: No concerns reported Const Other: Pertinent findings are in BOLD GENERAL APPEARANCE NAD, activity normal for age, well developed/ well nourished, no cyanosis, pallor, or diaphoresis. EYES lids/conjunctiva normal. EARS/NOSE/THROAT Mucous membranes moist, nares normal, lips/teeth normal uvula midline without oral pharyngeal erythema, exudate or swelling TMs normal bilaterally. No lymphangitis/lymphedema. HEAD/NECK normocephalic atraumatic, no facial trauma, neck is supple. RESPIRATORY respiratory effort normal, speaks in full sentences, no tripod position, no accessory muscle use. Lungs clear to auscultation without rhonchi, wheezes, rales CARDIAC Regular rate and rhythm, no edema. ABDOMINAL Soft, ND/NT. No evidence of fluid wave. No pulsatile masses on exam, rebound tenderness, Smith sign or pain over Mcburney's point. MUSCLES/EXTREMITIES No abnormal range of motion, no swelling. SKIN Warm, pink and dry. No rashes, dermatoses, petechiae or lesions. NEUROLOGICAL Speech is clear and appropriate. Normal level of consciousness. Gait and coordination are normal. 5/5 strength in all extremities. PSYCH Normal mood and affect. Judgement/competence is appropriate Ears: after flush, cerumen impaction partially resolved. Coding Level of Care Code Est Pt Level 3 (72630) Diagnoses Bilateral impacted cerumen H61.23 Laterality: bilateral Time Spent (min) 20 Assessment & Plan Assessment & Plan (1) Cerumen impaction: Code(s): H61.20 - Impacted cerumen, unspecified ear Category: Medical Qualifiers: Laterality: bilateral Qualified Code(s): H61.23 - Impacted cerumen, bilateral Plan: Ear flush done in clinic today. Jonathan had mild dizziness after the procedure which improved with rest. Ears partially cleared. Jonathan called after the procedure and she reports doing fine. Advised patient not to use any ear drops after the procedure. Plan Bilateral ear flush done today. Patient had mild dizziness after the procedure which subsided with rest. She was able to walk with no issues. I called the patient and she reported she is doing well.
[2025-08-03 09:02] VITALS: BP 130/70; PULSE 71; TEMP 36.3; O2SAT 98; BMI 19.1
== END 2025-08-03 09:40 | disposition home or self-care (01) ==
LOC: HO.HMCH 08:44
PROVIDERS: PCP Internal Medicine; Visit Provider Internal Medicine
DX: H61.23 Impacted cerumen, bilateral (principal)

== ENCOUNTER → 2025-08-03 08:43 | Outpatient (BNVA) | payer MEDICARE, MEDICAID, SELFPAY | PROVIDERS: PCP Internal Medicine; Visit Provider Internal Medicine | DX: H61.23 Impacted cerumen, bilateral (principal) | CPT/HCPCS: 99212 ==

== ENCOUNTER 2025-09-14 09:49 | Outpatient (REF) | payer MEDICARE, MEDICAID, SELFPAY ==
--- NOTE | ~2025-09-14 | MM_ITS ---
EXAMINATION(S): 1. MM DIAGNOSTIC DIGITAL BREAST TOMOSYNTHESIS, LEFT 2. TARGETED ULTRASOUND OF THE LEFT BREAST CLINICAL INFORMATION: -Six month follow-up for left breast asymmetry in the lateral aspect of the breast on the CC view posterior depth, recommended in September 2024. - Six month follow-up of left breast hypoechoic solid mass or complicated cyst at 2 o'clock position at 6 cm from the nipple, recommended in March 2025. COMPARISON: Comparison made to multiple prior mammograms, most recent September 15, 2024, and most remote May 05, 2019. Prior left breast ultrasound on March 16, 2025 and September 15, 2024. TECHNIQUE: Digital breast tomosynthesis is performed in both the mediolateral oblique and craniocaudal views along with computer-aided detection (CAD). Synthesized 2D images are generated from the tomosynthesis. Best possible images according to technologist notes. FINDINGS: BREAST COMPOSITION: There are scattered areas of fibroglandular density. RIGHT BREAST: No significant masses, suspicious calcifications or other abnormalities are seen. LEFT BREAST: Previously described asymmetry in the lateral breast posterior depth on the CC view is not significantly changed since June 2024. No new masses, suspicious calcifications or other abnormalities are seen. Targeted ultrasound of the left breast was performed at the location of the previously described sonographic finding. The survey shows a 0.6 x 0.4 x 0.6 cm hypoechoic solid mass or complicated cyst at 2 o'clock position 6 cm from the nipple. No internal vascularity demonstrated with color Doppler evaluation. Prior measurements were 0.6 x 0.3 x 0.5 cm in September 2024 and 0.6 x 0.6 x 0.4 cm in March 2025. MM/MM tomosynthesis diagnostic BI IMPRESSION: RIGHT BREAST: Negative, no mammographic evidence of malignancy. Normal interval follow-up is recommended in 12 months. LEFT BREAST: 1. Asymmetry in the lateral breast posterior depth on the CC view, not significantly changed since June 2024. Probably benign. A 12 month follow-up is recommended as diagnostic mammogram. 2. Hypoechoic solid mass or complicated cyst at 2 o'clock position 6 cm from the nipple, not significantly changed since September 2024 probably benign. A 12 month follow-up is recommended with limited ultrasound. ASSESSMENT: BI-RADS: Category 3: Probably benign RECOMMENDATION: 12 month diagnostic follow up Results were provided to the patient at time of visit by the technologist. This patient's information was entered into a reminder system with a target due date for their next mammogram. Electronically signed by: Ernestina Jhaveri MD 09/14/2025 11:21 AM LOVE
== END 2025-09-14 09:50 | disposition home or self-care (01) ==
LOC: HO.MAMMO 09:49
PROVIDERS: PCP Internal Medicine; Visit Provider Internal Medicine
DX: N64.89 Other specified disorders of breast (principal)
CPT/HCPCS: 76642; 77062; 77066

== ENCOUNTER → 2025-09-14 10:00 | Outpatient (BNV) | payer MEDICARE, MEDICAID, SELFPAY | PROVIDERS: PCP Internal Medicine; Visit Provider Radiology Body Imaging | DX: R92.8 Other abnormal and inconclusive findings on diagnostic imaging of breast (principal) | CPT/HCPCS: 76642; 77066; G0279 ==